=== PATIENT | female | born 1950 | race Caucasian/White ===

== ENCOUNTER 2018-06-30 08:19 | Observation (INO) | payer MEDICARE ==
[2018-06-30] MEDS ORDERED: NS 0.9% 1000 ML* 1,000 ML IV ONE (08:46)
--- NOTE | 2018-06-30 08:48 | ED ---
Syncope/Near Syncope - HPI Summary HPI Summary: Patient is a 67-year-old female who presents emergency department for a syncopal episode that occurred just prior to arrival. Patient states she got out of bed this morning and walked into the kitchen to get her breakfast ready. She states she suddenly got diaphoretic and next thing she knew she woke up on the floor. Episode was witnessed by her who is present. He states that patient became very sweaty and clammy and passed out. There is no seizure activity. He states it took her about one minute to come to. Pt. denies CP or SOB. Pt. notes a hx of hyponatremia. She denies h/a, neck pain, abd. pain, fever. She notes that she was started on cipro and flagyl for suspected diverticulitis last week and is almost done with rx. Pt. states that her abd. pain has resolved and she is feeling much better since antibx. However, she does not diarrhea since starting antibxs. Past medical hx of depression, bipolar , high cholesterol. Pt. notes she had a full cardio workup a few years ago that was negative. Symptoms are moderate in severity. Ambulation and activity makes sxs worse. Rest makes sxs better. Pt.'s only current complaint is generalized weakness. - History Of Current Complaint Chief Complaint: EDSyncope Time Seen by Provider: 06/30/18 08:39 Hx Obtained From: Patient - Allergies/Home Medications Allergies/Adverse Reactions: Allergies Allergy/AdvReac Type Severity Reaction Status Date / Time diazepam Allergy Swelling Verified 06/30/18 12:20 Home Medications: Home Medications Aspirin EC TAB* [Ecotrin EC Low Dose 81 MG*] 81 mg PO DAILY 06/30/18 [History Confirmed 06/30/18] Cholecalciferol (Vitamin D3) [Vitamin D3] 2,000 unit PO DAILY 06/30/18 [History Confirmed 06/30/18] Ciprofloxacin HCl [Cipro] 500 mg PO BID 06/30/18 [History Confirmed 06/30/18] Divalproex ER TAB(*) [Depakote ER TAB(*)] 500 mg PO BEDTIME 06/30/18 [History Confirmed 06/30/18] Famotidine TAB* [Pepcid 20 MG TAB*] 20 mg PO BID 06/30/18 [History Confirmed ] Lysine [l-Lysine] 1,000 mg PO DAILY 06/30/18 [History Confirmed 06/30/18] Multivit-Min/Iron/Folic/Lutein [Centrum Silver Women Tablet] 1 tab PO DAILY [History Confirmed 06/30/18] Pantoprazole Sodium 40 mg PO DAILY 06/30/18 [History Confirmed 06/30/18] Valacyclovir HCl [Valacyclovir] 500 mg PO BID PRN 06/30/18 [History Confirmed ] metroNIDAZOLE * 500 mg PO TID 06/30/18 [History Confirmed 06/30/18] PMH/Surg Hx/FS Hx/Imm Hx Previously Healthy: Yes Endocrine/Hematology History: Denies: Hx Diabetes, Hx Systemic Lupus Erythematosus, Hx Thyroid Disease Cardiovascular History: Reports: Hx Hypercholesterolemia, Hx Hypotension, Other Cardiovascular Problems/Disorders - Hx carotid artery stenosis Denies: Hx Congestive Heart Failure, Hx Hypertension, Hx Pacemaker/ICD Respiratory History: Denies: Hx Asthma, Hx Chronic Obstructive Pulmonary Disease (COPD) GI History: Denies: Hx Ulcer History: Denies: Hx Dialysis, Hx Renal Disease Musculoskeletal History: Denies: Hx Rheumatoid Arthritis Comment Only: Other Musculoskeletal History - back surgery Sensory History: Reports: Hx Contacts or Glasses Denies: Hx Hearing Aid Opthamlomology History: Reports: Hx Contacts or Glasses Neurological History: Reports: Hx Seizures - Consultation states "possible Hx of seizure D/O" Psychiatric History: Reports: Hx Anxiety, Hx Depression, Hx Panic Disorder, Hx Inpatient Treatment - multiple inpatient, Hx Bipolar Disorder, Hx Suicide Attempt - at least 3 suicide attempts within past 2 years Denies: Hx Eating Disorder, Hx of Violent Episodes Against Others - Cancer History Cancer Type, Location and Year: [facility] 20 YRS AGO-removed surgical.no chemo Hx Chemotherapy: No Hx Radiation Therapy: No - Surgical History Surgery Procedure, Year, and Place: hx of back surgery and s/p partial hysterectomy in 1984, two knee surgeries (left),bilat oopherectomy Infectious Disease History: No Infectious Disease History: Reports: Hx Tuberculosis - POSITIVE TEST, CLEAR ON CHEST X-RAY Denies: Hx Clostridium Difficile, Hx Hepatitis, Hx Human Immunodeficiency Virus (HIV), Hx of Known/Suspected MRSA, Hx Shingles, Hx Known/Suspected VRE, Hx Known/Suspected VRSA, History Other Infectious Disease, Traveled Outside the [place] in Last 30 Days - Family History Known Family History: Positive: Unknown Negative: Cardiac Disease, Hypertension, Diabetes - Social History Occupation: Retired Lives: With Family Alcohol Use: None Alcohol Amount: HX EtOH abuse Substance Use Type: Reports: Sedatives Substance Use Comment - Amount & Last Used: 20 0.5mg lorazepam Hx Tobacco Use: No Smoking Status (MU): Never Smoked Tobacco Have You Smoked in the Last Year: No Review of Systems Constitutional: Negative Negative: Fever, Chills Eyes: Negative ENT: Negative Cardiovascular: Negative Negative: Palpitations, Chest Pain Respiratory: Negative Negative: Shortness Of Breath, Cough Positive: Diarrhea. Negative: Abdominal Pain, Vomiting, Nausea Genitourinary: Negative Musculoskeletal: Negative Neurological: Negative All Other Systems Reviewed And Are Negative: Yes Physical Exam Triage Information Reviewed: Yes Vital Signs On Initial Exam: Initial Vitals Temp Pulse Resp BP Pulse Ox 97.3 F 78 20 103/68 99 06/30/18 08:27 06/30/18 08:27 06/30/18 08:27 06/30/18 08:27 06/30/18 08:27 Vital Signs Reviewed: Yes Appearance: Positive: Well-Appearing - Pt. sitting up in bed in NAD. Appears tired and dehydrated. Lips are chapped and mouth is dry. Skin: Positive: Warm, Dry Head/Face: Positive: Normal Head/Face Inspection Eyes: Positive: Normal, EOMI Neck: Positive: Supple, Nontender Respiratory/Lung Sounds: Positive: Clear to Auscultation, Breath Sounds Present Cardiovascular: Positive: Normal, RRR Abdomen Description: Positive: Nontender, Soft Neurological: Positive: Normal, CN Intact II-III Psychiatric: Positive: Affect/Mood Appropriate Diagnostics - Vital Signs Vital Signs Temp Pulse Resp BP Pulse Ox 06/30/18 08:27 97.3 F 78 20 103/68 99 - Laboratory Result Diagrams: 06/30/18 09:07 06/30/18 09:07 Lab Statement: Any lab studies that have been ordered have been reviewed, and results considered in the medical decision making process. Course/Dx Course Of Treatment: Pt. presenting to the emergency department after a syncopal episode. She is afebrile. Blood pressure is mildly low at 103/68. Patient denies any chest pain. Her main complaint is generalized weakness and diarrhea. Patient was started on IV fluids and monitor was placed. We'll check cardiac workup. ECG done at 0847 shows a sinus rhythm of 76 bpm, normal axis, no ST eelvation or depression. CBC unremarkable. Sodium low at 127. Chest xray negative for acute findings. Orthostatics were obtained and pt. dropped from 125/69 to 99/73 when changing from sitting to standing. Pt. became very weak and dizziness with this. Given hyponatremia and orthostatic hypotension, hospitalist was contacted for admission. I spoke with Dr. Jerry who has accepted admission. - Diagnoses Differential Diagnosis/HQI/PQRI: Positive: Coronary Artery Disease, Dysrhythmia , GI Bleed, Hypoglycemia, Hypovolemia, Metabolic Reaction, Myocardial Infarction , Seizure, Vasovagal Episode Provider Diagnoses: Hyponatremia, Orthostatic hypotension Discharge - Sign-Out/Discharge Documenting (check all that apply): Patient Departure - Discharge Plan Condition: Stable Disposition: ADMITTED TO [facility] - Billing Disposition and Condition Condition: STABLE Disposition: Admitted to [facility]
--- OUTSIDE RECORDS SUMMARY | 2018-06-30 08:54 | XMS REPORT ---
:1950 External Reference #:[id number] Author Organization [facility] Address [address] [place] [address] Phone [phone] Care Team Providers Name Role Phone Huber Riley MD Primary Care Physician Unavailable Payers Type Date Identification Numbers Payment Provider Subscriber Medicare Primary Policy Number: [id number] Medicare Corinna Vela PayID: [id number] [address] [facility] [address] Medigap Part B Effective: 2013 Policy Number: Medicare Corinna Vela [id number] Expires: 2018 PayID: [id number] [address] [place] [address] Medigap Part B Policy Number: [id number] [facility] Corinna Vela PayID: [id number] [address] [place] [address] Advance Directives Type Date Description Status Comment Other Directive 12/09/2004 Health Care Proxy Current and Verified Problems Date Description Provider Status Onset: 08/25/2014 Single major depressive episode Huber Riley M.D. Active Onset: 08/25/2014 Hyperlipidemia Huber Riley M.D. Active Onset: 08/25/2014 Cardiovascular symptoms Huber Riley M.D. Active Onset: 08/25/2014 Cellulitis Huber Riley M.D. Active Onset: 08/25/2014 Herpes simplex Huber Riley M.D. Active Onset: 08/25/2014 After-cataract Huber Riley M.D. Active Onset: 09/08/2014 Hypo-osmolality and or hyponatremia Huber Riley M.D. Active Onset: 11/08/2014 Closed fracture of nasal bones Huber Riley M.D. Active Onset: 01/02/2016 Mucocele of salivary gland Huber Riley M.D. Active Onset: 04/14/2016 Essential hypertension Huber Riley M.D. Active Onset: 10/01/2016 Mixed hyperlipidemia Huber Riley M.D. Active Onset: 03/04/2017 Other gastritis with bleeding Huber Riley M.D. Active Onset: 04/01/2017 Abdominal pain Huber Riley M.D. Active Onset: 05/11/2017 Knee pain Huber Riley M.D. Active Onset: 05/20/2017 Anemia Huber Riley M.D. Active Onset: 05/14/2017 Localized, primary osteoarthritis Chelly Mason MD Active Onset: 05/14/2017 Acquired genu valgum Chelly Mason MD Active Onset: 07/01/2017 Gastroesophageal reflux disease Huber Riley M.D. Active Family History Date Family Member(s) Problem(s) Comments General Diabetes General Heart Disease General Hypertension General Cancer General Stroke Father Diabetes Type II Father stents at age 86, at 88 years of age not related to cardiac Mother dec in mid 30's due to suicide Siblings 1 Siblings Prostate cancer Siblings 3 sisters, all healthy Social History Type Date Description Comments Marital Status Lives With Occupation Retired ETOH Use Rarely consumes alcohol Smoking Patient has never smoked Recreational Drug Use Denies Drug Use Daily Caffeine Consumes on average 2 cups of regular coffee per day Exercise Type/Frequency Exercises sporadically Allergies, Adverse Reactions, Alerts Date Description Reaction Status Severity Comments 08/25/2014 Valium Swelling active Medications Medication Date Status Form Strength Qnty SIG Indications Ordering Provider Cipro 10/25/ Active Tablets 500mg 14tab 1 tab K57.32 2017 s twice a Benavides, day for 7 MD days Metronidazole 1025/ Active Tablets 500mg 21tab 1 three K57.32 2017 s times a Benavides, day x 7 MD days Famotidine 03/06/ Active Tablets 20mg 60tab 1 by Huber 2016 s mouth Osvaldo colon , SethDYun daily Pantoprazole 03/04/ Active Tablets DR 40mg 90tab 1 in the K29.61 Huber Sodium 2017 s morning [place] empty , M.D. stomach Betamethasone 03/04/ Active Cream 0.1% 45gm apply to L23.9 Huber Valerate 2016 affected [place] area , M.D. twice Prozac 01/01/ Active Capsules 20mg 1 by Huber 2015 mouth [place] every day , M.D. Docusate Sodium / Active Capsules 100mg 60cap 1 by Unknown 0000 s mouth twice a day prn Senna Laxative / Active Tablets 8.6mg 30tab 1 by Unknown 0000 s mouth every day prn Baby Aspirin / Active Chewtabs 81mg 100un 1 by Unknown 0000 its mouth every day Centrum Silver / Active Tablets Adult 50 90tab 1 by Unknown Adult 50+ 0000 s mouth every day Vitamin D / Active Tablets 1000Unit 2 tab Unknown (Cholecalciferol 0000 each day ) by mouth Lysine HCL / Active Tablets 1000mg 1 po qd Unknown 0000 Divalproex / Active Tablets ER 500mg 2 tabs by Unknown Sodium ER 0000 24HR mouth at bedtime as directed Simvastatin / Active Tablets 20mg 90tab 1 by Bo 0000 s mouth Lawanda Belcher, every day M.D.,FACP at at bedtime Nitrofurantoin 12/03/ Hx Capsules 100mg 14cap 1 cap bid R35.0 [place] Macrocrystal 2016 - s [place] 12/24/ , M.DYun 2017 Valacyclovir HCL 03/04/ Hx Tablets 500mg 6tabs 1 tab in B00.9 Bo 2016 - in the Lawanda Belcher, 06/25/ morning M.D.,FACP 2015 and 1 in at night as needed Ketoconazole 03/04/ Hx Cream 2% 90gm apply B36.9 Huber 2016 - twice a [place] 02/09/ day , M.D. 2018 Betamethasone 01/01/ Hx Cream 0.1% 45gm apply to Huber Valerate 2016 - affected [place] 03/04/ area , M.D. 2016 twice Nystatin 11/20/ Hx Suspension [id number] 250ml 5ml swish B37.0 [place] 2016 - t/ML and [place] 03/04/ swallow 5 , M.D. 2016 times daily Metoprolol 11/07/ Hx Tablets 25mg 60tab 1/2 tab Huber Tartrate 2015 - s by mouth [place] 12/03/ once a , M.D. 2015 day Depakote ER 10/28/ Hx Tablets ER 250mg 90tab 3 tab by Other 2016 - 24HR s mouth Ordering 03/04/ every Provider 2016 night at bedtime Risperidone 10/28/ Hx Tablets 0.5mg 30tab take one Other 2016 - s half Ordering 04/14/ tablet by Provider 2016 mouth at bedtime Keflex 08/25/ Hx Capsules 500mg 21cap 1 by 682.8 Huber 2013 - mouth [place] 09/08/ three , M.D. 2015 times a day Valtrex 08/25/ Hx Tablets 1gm 10tab twice a 054.79 Huber 2013 - day [place] 09/08/ , M.D. 2014 Divalproex / Hx Tablets ER 500mg 60tab 2 tabs q Unknown Sodium ER 0000 - 24HR s hs 2015 Risperdal / Hx Tablets 120ta 0.5mg by Unknown 0000 - bs mouth 07/18/ every day 2014 at hs Risperdal / Hx Tablets 0.5mg take 1-2 Unknown 0000 - tablet by 09/04/ mouth 2015 twice a day as needed for severe symptoms Valacyclovir HCL / Hx Tablets 500mg 20tab 1 tablets [place] 0000 - s by mouth [place] 03/04/ twice a , M.D. 2016 day for 10 days Risperidone / Hx Tablets 0.25mg 1 tab in Unknown 0000 - evening 2017 Medications Administered in Office Medication Date Status Form Strength Qnty SIG Indications Ordering Provider No Injection 02/26/ Administered Injection Zaneb 2017 MD Marlon Triamcinolone 02/26/ Administered Injection Zaneb (Kenalog) 2017 MD Marlon Triamcinolone 05/14/ Administered Injection Zaneb (Kenalog) 2016 MD Marlon Immunizations CPT Code Status Date Vaccine Lot # [id number] Given 02/10/2018 Pneumonia Vaccine [id number] Given 10/09/2014 Pneumococcal Conjugate Vaccine 13 Valent For [id number] Intramuscular Use Vital Signs Date Vital Result Comment 06/24/2018 Height 63 inches 5'3" Weight 143.38 lb Heart Rate 76 /min BP Systolic 130 mmHg BP Diastolic 90 mmHg Body Temperature 98.0 F O2 % BldC Oximetry 96 % BMI (Body Mass Index) 25.4 kg/m2 05/12/2018 Height 63 inches 5'3" Weight 143.00 lb Heart Rate 83 /min BP Systolic 111 mmHg BP Diastolic 70 mmHg O2 % BldC Oximetry 99 % BMI (Body Mass Index) 25.3 kg/m2 02/26/2018 Height 63 inches 5'3" Weight 148.00 lb BP Systolic 111 mmHg BP Diastolic 68 mmHg Respiratory Rate 16 /min Pain Level 7 BMI (Body Mass Index) 26.2 kg/m2 02/10/2018 Height 63 inches 5'3" Weight 148.00 lb Heart Rate 77 /min BP Systolic Sitting 110 mmHg BP Diastolic Sitting 72 mmHg O2 % BldC Oximetry 99 % BMI (Body Mass Index) 26.2 kg/m2 11/05/2017 Height 63 inches 5'3" Weight 150.50 lb Heart Rate 67 /min BP Systolic 120 mmHg BP Diastolic 72 mmHg Body Temperature 97.1 F O2 % BldC Oximetry 98 % BMI (Body Mass Index) 26.7 kg/m2 07/01/2017 Height 63 inches 5'3" Weight 147.75 lb Heart Rate 67 /min BP Systolic 100 mmHg BP Diastolic 60 mmHg Body Temperature 97.1 F O2 % BldC Oximetry 99 % BMI (Body Mass Index) 26.2 kg/m2 05/20/2017 Height 63 inches 5'3" Weight 145.75 lb Heart Rate 74 /min BP Systolic 122 mmHg BP Diastolic 70 mmHg Body Temperature 99.1 F O2 % BldC Oximetry 98 % BMI (Body Mass Index) 25.8 kg/m2 05/14/2017 Height 63 inches 5'3" Weight 146.00 lb Heart Rate 83 /min BP Systolic 112 mmHg BP Diastolic 77 mmHg Body Temperature 97.6 F BMI (Body Mass Index) 25.9 kg/m2 05/11/2017 Weight 146.00 lb Heart Rate 71 /min BP Systolic Sitting 124 mmHg BP Diastolic Sitting 62 mmHg Body Temperature 98.0 F O2 % BldC Oximetry 98 % 04/01/2017 Weight 147.25 lb Heart Rate 80 /min BP Systolic 110 mmHg BP Diastolic 70 mmHg Body Temperature 97.0 F O2 % BldC Oximetry 98 % 03/25/2017 Weight 146.50 lb Heart Rate 73 /min BP Systolic 100 mmHg BP Diastolic 60 mmHg Body Temperature 96.9 F O2 % BldC Oximetry 98 % 03/04/2017 Weight 143.50 lb Heart Rate 82 /min BP Systolic 104 mmHg BP Diastolic 68 mmHg Body Temperature 97.6 F O2 % BldC Oximetry 98 % 12/24/2016 Weight 145.00 lb Heart Rate 84 /min BP Systolic Sitting 122 mmHg BP Diastolic Sitting 64 mmHg O2 % BldC Oximetry 98 % 12/03/2016 Weight 147.00 lb Heart Rate 77 /min BP Systolic Sitting 120 mmHg BP Diastolic Sitting 88 mmHg Body Temperature 97.7 F O2 % BldC Oximetry 99 % 10/01/2016 Weight 147.00 lb w/ boots Heart Rate 66 /min BP Systolic Sitting 100 mmHg BP Diastolic Sitting 62 mmHg Body Temperature 98.2 F O2 % BldC Oximetry 99 % 06/25/2016 Weight 143.00 lb Heart Rate 68 /min BP Systolic Sitting 120 mmHg BP Diastolic Sitting 64 mmHg Respiratory Rate 15 /min Body Temperature 97.8 F O2 % BldC Oximetry 99 % 04/15/2016 Height 62.75 inches 5'2.75" Weight 141.00 lb w/shoes Heart Rate 76 /min BP Systolic Sitting 102 mmHg LA reg cuff BP Diastolic Sitting 64 mmHg LA reg cuff BMI (Body Mass Index) 25.2 kg/m2 Ejection Fraction 55% Stress Test 08/07/15 04/14/2016 Height 62.75 inches 5'2.75" Weight 138.25 lb Heart Rate 82 /min BP Systolic Sitting 106 mmHg BP Diastolic Sitting 82 mmHg Body Temperature 97.6 F O2 % BldC Oximetry 99 % BMI (Body Mass Index) 24.7 kg/m2 03/11/2016 Height 63 inches 5'3" Weight 141.12 lb Heart Rate 84 /min BP Systolic Sitting 116 mmHg BP Diastolic Sitting 74 mmHg Body Temperature 97.6 F O2 % BldC Oximetry 99 % BMI (Body Mass Index) 25.0 kg/m2 03/04/2016 Height 63 inches 5'3" Weight 141.00 lb Heart Rate 78 /min BP Systolic Sitting 114 mmHg BP Diastolic Sitting 78 mmHg Body Temperature 98.0 F O2 % BldC Oximetry 97 % BMI (Body Mass Index) 25.0 kg/m2 01/02/2016 Weight 142.00 lb Heart Rate 74 /min BP Systolic Sitting 94 mmHg BP Diastolic Sitting 50 mmHg Body Temperature 97.9 F 11/21/2015 Weight 135.00 lb Heart Rate 66 /min BP Systolic Sitting 110 mmHg BP Diastolic Sitting 60 mmHg Respiratory Rate 15 /min O2 % BldC Oximetry 98 % 09/26/2015 Weight 139.00 lb Heart Rate 80 /min BP Systolic Sitting 112 mmHg BP Diastolic Sitting 73 mmHg Body Temperature 97.6 F O2 % BldC Oximetry 99 % 09/05/2015 Height 63 inches 5'3" Weight 142.00 lb w/boots Heart Rate 84 /min BP Systolic Sitting 96 mmHg LA reg cuff BP Diastolic Sitting 68 mmHg LA reg cuff BMI (Body Mass Index) 25.2 kg/m2 Ejection Fraction 55-60 echo 07/31/15 07/18/2015 Height 63 inches 5'3" Weight 138.50 lb w/shoes BMI (Body Mass Index) 24.5 kg/m2 Ejection Fraction 55-60 echo 10/12/14 07/10/2015 Height 63 inches 5'3" Weight 140.38 lb Heart Rate 92 /min BP Systolic Sitting 120 mmHg BP Diastolic Sitting 85 mmHg Body Temperature 97.0 F O2 % BldC Oximetry 98 % BMI (Body Mass Index) 24.9 kg/m2 06/22/2015 Height 63 inches 5'3" Weight 142.00 lb Heart Rate 81 /min BP Systolic 100 mmHg BP Diastolic 60 mmHg Body Temperature 97.8 F O2 % BldC Oximetry 98 % BMI (Body Mass Index) 25.2 kg/m2 03/09/2015 Weight 139.00 lb Heart Rate 76 /min BP Systolic Sitting 108 mmHg BP Diastolic Sitting 78 mmHg Body Temperature 97.7 F O2 % BldC Oximetry 96 % 11/08/2014 Height 63 inches 5'3" Weight 152.38 lb Heart Rate 89 /min BP Systolic Sitting 118 mmHg BP Diastolic Sitting 68 mmHg Body Temperature 98.3 F O2 % BldC Oximetry 98 % BMI (Body Mass Index) 27.0 kg/m2 10/11/2014 Height 63 inches 5'3" Weight 156.50 lb Heart Rate 80 /min BP Systolic Sitting 100 mmHg LA, reg BP Diastolic Sitting 72 mmHg LA, reg BMI (Body Mass Index) 27.7 kg/m2 10/09/2014 Height 63 inches 5'3" Weight 156.50 lb Heart Rate 75 /min BP Systolic Sitting 104 mmHg BP Diastolic Sitting 76 mmHg O2 % BldC Oximetry 98 % BMI (Body Mass Index) 27.7 kg/m2 09/08/2014 Height 63 inches 5'3" Weight 152.00 lb Heart Rate 82 /min BP Systolic Sitting 113 mmHg BP Diastolic Sitting 73 mmHg Body Temperature 97.2 F BMI (Body Mass Index) 26.9 kg/m2 08/25/2014 Height 63 inches 5'3" Weight 143.25 lb Heart Rate 82 /min BP Systolic Sitting 128 mmHg BP Diastolic Sitting 70 mmHg Body Temperature 97.0 F O2 % BldC Oximetry 98 % BMI (Body Mass Index) 25.4 kg/m2 Results Test Date Test Result H/L Range Note CBC Auto Diff 02/25/2018 White Blood Count 8.2 10^3/uL 3.5-10.8 Red Blood Count 3.86 10^6/uL Low 4.00-5.40 Hemoglobin 11.8 g/dL Low 12.0-16.0 Hematocrit 35 % 35-47 Mean Corpuscular Volume 91 fL 80-97 Mean Corpuscular Hemoglobin 31 pg 27-31 Mean Corpuscular HGB Conc 34 g/dL 31-36 Red Cell Distribution Width 14 % 10.5-15 Platelet Count 269 10^3/uL 150-450 Mean Platelet Volume 7.5 um3 7.4-10.4 Abs Neutrophils 5.4 10^3/uL 1.5-7.7 Abs Lymphocytes 1.6 10^3/uL 1.0-4.8 Abs Monocytes 1.0 10^3/uL High 0-0.8 Abs Eosinophils 0.1 10^3/uL 0-0.6 Abs Basophils 0 10^3/uL 0-0.2 Abs Nucleated RBC 0 10^3/uL Granulocyte % 66.1 % 38-83 Lymphocyte % 20.0 % Low 25-47 Monocyte % 12.1 % High 0-7 Eosinophil % 1.4 % 0-6 Basophil % 0.4 % 0-2 Nucleated Red Blood Cells % 0 Iron & Iron Binding Capacity 02/25/2018 Iron 57 g/dL 50-212 Unsaturated Iron Binding 269 g/dL Total Iron Binding Capacity 326 g/dL 250-450 Transferrin 233 mg/dL 203-362 % Iron Saturation 17 % 15-55 Lipid Profile (Trig/Chol/HDL) 07/03/2017 Triglycerides 104 mg/dL 1 Cholesterol 152 mg/dL 2 HDL Cholesterol 47.4 mg/dL 3 LDL Cholesterol 84 mg/dL 4 Basic Metabolic Panel 07/03/2017 Sodium 130 mmol/L Low 133-145 Potassium 4.4 mmol/L 3.5-5.0 Chloride 97 mmol/L Low 101-111 Co2 Carbon Dioxide 27 mmol/L 22-32 Anion Gap 6 mmol/L 2-11 Glucose 82 mg/dL 70-100 Blood Urea Nitrogen 13 mg/dL 6-24 Creatinine 0.54 mg/dL 0.51-0.95 BUN/Creatinine Ratio 24.1 High 8-20 Calcium 9.3 mg/dL 8.6-10.3 Egfr Non- 112.3 >60 Egfr 144.4 >60 5 Basic Metabolic Panel 06/03/2017 Sodium 127 mmol/L Low 133-145 Potassium 4.6 mmol/L 3.5-5.0 Chloride 95 mmol/L Low 101-111 Co2 Carbon Dioxide 26 mmol/L 22-32 Anion Gap 6 mmol/L 2-11 Glucose 87 mg/dL 70-100 Blood Urea Nitrogen 8 mg/dL 6-24 Creatinine 0.45 mg/dL Low 0.51-0.95 BUN/Creatinine Ratio 17.8 8-20 Calcium 8.8 mg/dL 8.6-10.3 Egfr Non- 138.6 >60 Egfr 178.2 >60 6 Laboratory test 06/02/2017 Clotest SEE RESULT BELOW 7, 8 finding Laboratory test 06/02/2017 Surgical Pathology SEE RESULT BELOW 9, 10 finding Vitamin B12 And 05/15/2017 Vitamin B12 985 pg/mL High 180-914 11 Folate Serum Folic Acid (Folate) > 20.00 ng/mL >3.99 Iron & Iron Binding Capacity 05/15/2017 Iron 63 g/dL 50-212 Unsaturated Iron Binding 302 g/dL Total Iron Binding Capacity 365 g/dL 250-450 % Iron Saturation 17 % 15-55 Stool Occult Blood 05/15/2017 Stool Occult Blood, SEE RESULT BELOW 12 Diag Diag CBC Auto Diff 05/12/2017 White Blood Count 5.9 10^3/uL 3.5-10.8 Red Blood Count 3.63 10^6/uL Low 4.0-5.4 Hemoglobin 11.5 g/dL Low 12.0-16.0 Hematocrit 34 % Low 35-47 Mean Corpuscular Volume 92 fL 80-97 Mean Corpuscular Hemoglobin 32 pg High 27-31 Mean Corpuscular HGB Conc 34 g/dL 31-36 Red Cell Distribution Width 14 % 10.5-15 Platelet Count 235 10^3/uL 150-450 Mean Platelet Volume 7 um3 Low 7.4-10.4 Abs Neutrophils 3.5 10^3/uL 1.5-7.7 Abs Lymphocytes 1.6 10^3/uL 1.0-4.8 Abs Monocytes 0.7 10^3/uL 0-0.8 Abs Eosinophils 0.1 10^3/uL 0-0.6 Abs Basophils 0 10^3/uL 0-0.2 Abs Nucleated RBC 0 10^3/uL Granulocyte % 58.4 % 38-83 Lymphocyte % 27.8 % 25-47 Monocyte % 11.7 % High 1-9 Eosinophil % 1.4 % 0-6 Basophil % 0.7 % 0-2 Nucleated Red Blood Cells % 0 Laboratory test finding 05/12/2017 Erythrocyte Sed Rate 11 mm/Hr 0-40 Lyme Disease Serology Negative Negative 13 Uric Acid 2.6 mg/dL 2.3-6.6 Comp Metabolic Panel 05/12/2017 Sodium 124 mmol/L Low 133-145 Potassium 4.6 mmol/L 3.5-5.0 Chloride 92 mmol/L Low 101-111 Co2 Carbon Dioxide 28 mmol/L 22-32 Anion Gap 4 mmol/L 2-11 Glucose 83 mg/dL 70-100 Blood Urea Nitrogen 8 mg/dL 6-24 Creatinine 0.44 mg/dL Low 0.51-0.95 BUN/Creatinine Ratio 18.2 8-20 Calcium 9.0 mg/dL 8.6-10.3 Total Protein 6.1 g/dL Low 6.4-8.9 Albumin 3.9 g/dL 3.2-5.2 Globulin 2.2 g/dL 2-4 Albumin/Globulin Ratio 1.8 1-3 Total Bilirubin 0.30 mg/dL 0.2-1.0 Alkaline Phosphatase 58 U/L 34-104 Alt 10 U/L 7-52 Ast 14 U/L 13-39 Egfr Non- 142.2 >60 Egfr 182.9 >60 14 Comp Metabolic Panel 03/25/2017 Sodium 127 mmol/L Low 133-145 Potassium 4.6 mmol/L 3.5-5.0 Chloride 93 mmol/L Low 101-111 Co2 Carbon Dioxide 27 mmol/L 22-32 Anion Gap 7 mmol/L 2-11 Glucose 94 mg/dL 70-100 Blood Urea Nitrogen 14 mg/dL 6-24 Creatinine 0.55 mg/dL 0.51-0.95 BUN/Creatinine Ratio 25.5 High 8-20 Calcium 9.0 mg/dL 8.6-10.3 Total Protein 6.1 g/dL Low 6.4-8.9 Albumin 3.9 g/dL 3.2-5.2 Globulin 2.2 g/dL 2-4 Albumin/Globulin Ratio 1.8 1-3 Total Bilirubin 0.20 mg/dL 0.2-1.0 Alkaline Phosphatase 49 U/L 34-104 Alt 8 U/L 7-52 Ast 14 U/L 13-39 Egfr Non- 109.9 >60 Egfr 141.4 >60 15 Urinalysis Profile 03/04/2017 Urine Color Yellow Urine Appearance Cloudy Urine Specific [place] 1.011 1.010-1.030 Urine pH 7.0 5-9 Urine Urobilinogen Negative Negative Urine Ketones Negative Negative Urine Protein Negative Negative Urine Leukocytes Negative Negative Urine Blood Negative Negative Urine Nitrite Negative Negative Urine Bilirubin Negative Negative Urine Glucose Negative Negative CBC Auto Diff 03/04/2017 White Blood Count 6.0 10^3/uL 3.5-10.8 Red Blood Count 3.77 10^6/uL Low 4.0-5.4 Hemoglobin 12.2 g/dL 12.0-16.0 Hematocrit 36 % 35-47 Mean Corpuscular Volume 96 fL 80-97 Mean Corpuscular Hemoglobin 32 pg High 27-31 Mean Corpuscular HGB Conc 34 g/dL 31-36 Red Cell Distribution Width 14 % 10.5-15 Platelet Count 218 10^3/uL 150-450 Mean Platelet Volume 8 um3 7.4-10.4 Abs Neutrophils 3.4 10^3/uL 1.5-7.7 Abs Lymphocytes 1.8 10^3/uL 1.0-4.8 Abs Monocytes 0.7 10^3/uL 0-0.8 Abs Eosinophils 0.1 10^3/uL 0-0.6 Abs Basophils 0.1 10^3/uL 0-0.2 Abs Nucleated RBC 0 10^3/uL Granulocyte % 57.1 % 38-83 Lymphocyte % 29.4 % 25-47 Monocyte % 11.7 % High 1-9 Eosinophil % 0.9 % 0-6 Basophil % 0.9 % 0-2 Nucleated Red Blood Cells % 0 Comp Metabolic Panel 12/24/2016 Sodium 125 mmol/L Low 133-145 Potassium 4.4 mmol/L 3.5-5.0 Chloride 91 mmol/L Low 101-111 Co2 Carbon Dioxide 28 mmol/L 22-32 Anion Gap 6 mmol/L 2-11 Glucose 89 mg/dL 70-100 Blood Urea Nitrogen 11 mg/dL 6-24 Creatinine 0.54 mg/dL 0.51-0.95 BUN/Creatinine Ratio 20.4 High 8-20 Calcium 9.3 mg/dL 8.6-10.3 Total Protein 6.5 g/dL 6.4-8.9 Albumin 4.1 g/dL 3.2-5.2 Globulin 2.4 g/dL 2-4 Albumin/Globulin Ratio 1.7 1-3 Total Bilirubin 0.40 mg/dL 0.2-1.0 Alkaline Phosphatase 53 U/L 34-104 Alt 9 U/L 7-52 Ast 16 U/L 13-39 Egfr Non- 112.3 >60 Egfr 144.4 >60 16 Urine Culture And 12/03/2016 Urine Culture SEE RESULT BELOW 17 Sensitivities Ua Routine 12/03/2016 Ua Specific [place] 1.000 Ua PH 8 Ua Color yellow Ua Appera clear Ua WBC trace Ua Protein neg Ua Glucose neg Ua Ketones neg Ua Bilirubin neg Ua Urobilinogen normal Ua Nitrite neg Ua Occult Blood moderate Lipid Profile (Trig/Chol/HDL) 09/25/2016 Triglycerides 140 mg/dL 18 Cholesterol 131 mg/dL 19 HDL Cholesterol 41.8 mg/dL 20 LDL Cholesterol 61 mg/dL 21 Basic Metabolic Panel 09/25/2016 Sodium 133 mmol/L 133-145 Potassium 4.3 mmol/L 3.5-5.0 Chloride 98 mmol/L Low 101-111 Co2 Carbon Dioxide 28 mmol/L 22-32 Anion Gap 7 mmol/L 2-11 Glucose 79 mg/dL 70-100 Blood Urea Nitrogen 14 mg/dL 6-24 Creatinine 0.51 mg/dL 0.51-0.95 BUN/Creatinine Ratio 27.5 High 8-20 Calcium 9.0 mg/dL 8.6-10.3 Egfr Non- 119.9 >60 Egfr 154.2 >60 22 Basic Metabolic Panel 06/16/2016 Sodium 134 mmol/L 133-145 Potassium 4.7 mmol/L 3.5-5.0 Chloride 98 mmol/L Low 101-111 Co2 Carbon Dioxide 30 mmol/L 22-32 Anion Gap 6 mmol/L 2-11 Glucose 83 mg/dL 70-100 Blood Urea Nitrogen 10 mg/dL 6-24 Creatinine 0.45 mg/dL Low 0.51-0.95 BUN/Creatinine Ratio 22.2 High 8-20 Calcium 9.2 mg/dL 8.6-10.3 Egfr Non- 139.0 >60 Egfr 178.7 >60 23 Laboratory test finding 03/03/2016 Erythrocyte Sed Rate 17 mm/Hr 0-40 24 , 25 Lyme Disease Serology Negative Negative 24, 26 CBC Auto Diff 03/03/2016 White Blood Count 6.7 10^3/uL 3.5-10.8 24 Red Blood Count 4.04 10^6/uL 4.0-5.4 24 Hemoglobin 12.4 g/dL 12.0-16.0 24 Hematocrit 37 % 35-47 24 Mean Corpuscular Volume 91 fL 80-97 24 Mean Corpuscular Hemoglobin 31 pg 27-31 24 Mean Corpuscular HGB Conc 34 g/dL 31-36 24 Red Cell Distribution Width 14 % 10.5-15 24 Platelet Count 215 10^3/uL 150-450 24 Mean Platelet Volume 8 um3 7.4-10.4 24 Abs Neutrophils 4.4 10^3/uL 1.5-7.7 24 Abs Lymphocytes 1.4 10^3/uL 1.0-4.8 24 Abs Monocytes 0.8 10^3/uL 0-0.8 24 Abs Eosinophils 0.1 10^3/uL 0-0.6 24 Abs Basophils 0 10^3/uL 0-0.2 24 Abs Nucleated RBC 0 10^3/uL 24 Granulocyte % 64.8 % 38-83 24 Lymphocyte % 21.3 % Low 25-47 24 Monocyte % 12.4 % High 1-9 24 Eosinophil % 0.9 % 0-6 24 Basophil % 0.6 % 0-2 24 Nucleated Red Blood Cells % 0.1 24 Laboratory test finding 03/03/2016 CRP High Sensitivity 2.45 mg/L 24, 27 Comp Metabolic Panel 03/03/2016 Sodium 129 mmol/L Low 133-145 24 Potassium 4.3 mmol/L 3.5-5.0 24 Chloride 94 mmol/L Low 101-111 24 Co2 Carbon Dioxide 27 mmol/L 22-32 24 Anion Gap 8 mmol/L 2-11 24 Glucose 98 mg/dL 70-100 24 Blood Urea Nitrogen 12 mg/dL 6-24 24 Creatinine 0.44 mg/dL Low 0.51-0.95 24 BUN/Creatinine Ratio 27.3 High 8-20 24 Calcium 9.3 mg/dL 8.6-10.3 24 Total Protein 6.4 g/dL 6.4-8.9 24 Albumin 4.0 g/dL 3.2-5.2 24 Globulin 2.4 g/dL 2-4 24 Albumin/Globulin Ratio 1.7 1-3 24 Total Bilirubin 0.30 mg/dL 0.2-1.0 24 Alkaline Phosphatase 51 U/L 34-104 24 Alt 11 U/L 7-52 24 Ast 15 U/L 13-39 24 Egfr Non- 142.6 >60 24 Egfr 183.4 >60 24, 28 Basic Metabolic Panel 12/06/2015 Sodium 132 mmol/L Low 133-145 Potassium 4.4 mmol/L 3.5-5.0 Chloride 98 mmol/L Low 101-111 Co2 Carbon Dioxide 27 mmol/L 22-32 Anion Gap 7 mmol/L 2-11 Glucose 84 mg/dL 70-100 Blood Urea Nitrogen 11 mg/dL 6-24 Creatinine 0.42 mg/dL Low 0.51-0.95 BUN/Creatinine Ratio 26.2 High 8-20 Calcium 9.3 mg/dL 8.6-10.3 Egfr Non- 150.5 >60 Egfr 193.5 >60 29 Comp Metabolic Panel 11/27/2015 Sodium 128 mmol/L Low 133-145 Potassium 4.4 mmol/L 3.5-5.0 Chloride 94 mmol/L Low 101-111 Co2 Carbon Dioxide 30 mmol/L 22-32 Anion Gap 4 mmol/L 2-11 Glucose 79 mg/dL 70-100 Blood Urea Nitrogen 12 mg/dL 6-24 Creatinine 0.47 mg/dL Low 0.51-0.95 BUN/Creatinine Ratio 25.5 High 8-20 Calcium 9.0 mg/dL 8.6-10.3 Total Protein 6.0 g/dL Low 6.4-8.9 Albumin 3.8 g/dL 3.2-5.2 Globulin 2.2 g/dL 2-4 Albumin/Globulin Ratio 1.7 1-3 Total Bilirubin 0.20 mg/dL 0.2-1.0 Alkaline Phosphatase 51 U/L 34-104 Alt 10 U/L 7-52 Ast 12 U/L Low 13-39 Egfr Non- 132.2 >60 Egfr 170.0 >60 30 Basic Metabolic Panel 10/30/2015 Sodium 132 mmol/L Low 133-145 Potassium 4.2 mmol/L 3.5-5.0 Chloride 95 mmol/L Low 101-111 Co2 Carbon Dioxide 27 mmol/L 22-32 Anion Gap 10 mmol/L 2-11 Glucose 87 mg/dL 70-100 Blood Urea Nitrogen 10 mg/dL 6-24 Creatinine 0.50 mg/dL Low 0.51-0.95 BUN/Creatinine Ratio 20.0 8-20 Calcium 9.8 mg/dL 8.6-10.3 Egfr Non- 123.1 >60 Egfr 158.3 >60 31 CBC Auto Diff 10/26/2015 White Blood Count 7.9 10^3/uL 3.5-10.8 Red Blood Count 3.98 10^6/uL Low 4.0-5.4 Hemoglobin 12.7 g/dL 12.0-16.0 Hematocrit 38 % 35-47 Mean Corpuscular Volume 95 fL 80-97 Mean Corpuscular Hemoglobin 32 pg High 27-31 Mean Corpuscular HGB Conc 34 g/dL 31-36 Red Cell Distribution Width 14 % 10.5-15 Platelet Count 214 10^3/uL 150-450 Mean Platelet Volume 8 um3 7.4-10.4 Abs Neutrophils 5.0 10^3/uL 1.5-7.7 Abs Lymphocytes 1.9 10^3/uL 1.0-4.8 Abs Monocytes 0.8 10^3/uL 0-0.8 Abs Eosinophils 0 10^3/uL 0-0.6 Abs Basophils 0.1 10^3/uL 0-0.2 Abs Nucleated RBC 0.01 10^3/uL Granulocyte % 63.8 % 38-83 Lymphocyte % 24.7 % Low 25-47 Monocyte % 10.6 % High 1-9 Eosinophil % 0.2 % 0-6 Basophil % 0.7 % 0-2 Nucleated Red Blood Cells % 0.1 Laboratory test finding 10/26/2015 Lactic Acid 2.5 mmol/L High 0.5-2.0 32 Comp Metabolic Panel 10/26/2015 Sodium 127 mmol/L Low 133-145 Potassium 4.2 mmol/L 3.5-5.0 Chloride 98 mmol/L Low 101-111 Co2 Carbon Dioxide 22 mmol/L 22-32 Anion Gap 7 mmol/L 2-11 Glucose 84 mg/dL 70-100 Blood Urea Nitrogen 8 mg/dL 6-24 Creatinine 0.46 mg/dL Low 0.51-0.95 BUN/Creatinine Ratio 17.4 8-20 Calcium 8.2 mg/dL Low 8.6-10.3 Total Protein 5.7 g/dL Low 6.4-8.9 Albumin 3.4 g/dL 3.2-5.2 Globulin 2.3 g/dL 2-4 Albumin/Globulin Ratio 1.5 1-3 Total Bilirubin 0.20 mg/dL 0.2-1.0 Alkaline Phosphatase 47 U/L 34-104 Alt 9 U/L 7-52 Ast 13 U/L 13-39 Egfr Non- 135.5 >60 Egfr 174.3 >60 33 Laboratory test finding 10/26/2015 Acetaminophen < 15 g/mL 34 Alcohol 125 mg/dL High <10 Salicylate < 2.50 mg/dL <30 Valproic Acid (Depakene) 55.0 g/mL 50-100 Urinalysis Profile 10/26/2015 Urine Color Yellow Urine Appearance Cloudy Urine Specific [place] 1.006 Low 1.010-1.030 Urine pH 7.0 5-9 Urine Urobilinogen Negative Negative Urine Ketones Trace Negative Urine Protein Negative Negative Urine Leukocytes 2+ Negative Urine Blood 1+ Negative Urine Nitrite Negative Negative Urine Bilirubin Negative Negative Urine Glucose Negative Negative Urine White Blood Cell 2+(11-20/hpf) Absent Urine Red Blood Cell 2+(6-10/hpf) Absent Urine Bacteria 1+ Absent Urine Squamous Epithelial Cell Present Absent Urine Transitional Epithelial Present Absent Laboratory test 10/26/2015 Urine Culture And SEE RESULT BELOW 35 finding Sensitivities Laboratory test 10/26/2015 Point of Care Glucose 82 mg/dL 74-106 36 finding Basic Metabolic Panel 09/26/2015 Sodium 134 mmol/L 133-145 Potassium 4.4 mmol/L 3.5-5.0 Chloride 98 mmol/L Low 101-111 Co2 Carbon Dioxide 30 mmol/L 22-32 Anion Gap 6 mmol/L 2-11 Glucose 81 mg/dL 70-100 Blood Urea Nitrogen 14 mg/dL 6-24 Creatinine 0.54 mg/dL 0.51-0.95 BUN/Creatinine Ratio 25.9 High 8-20 Calcium 9.3 mg/dL 8.6-10.3 Egfr Non- 112.6 >60 Egfr 144.8 >60 37 Basic Metabolic Panel 07/31/2015 Sodium 132 mmol/L Low 133-145 Potassium 4.3 mmol/L 3.5-5.0 Chloride 97 mmol/L Low 101-111 Co2 Carbon Dioxide 27 mmol/L 22-32 Anion Gap 8 mmol/L 2-11 Glucose 87 mg/dL 70-100 Blood Urea Nitrogen 15 mg/dL 6-24 Creatinine 0.51 mg/dL 0.51-0.95 BUN/Creatinine Ratio 29.4 High 8-20 Calcium 9.4 mg/dL 8.6-10.3 Egfr Non- 120.3 >60 Egfr 154.7 >60 38 CBC Auto Diff 07/10/2015 White Blood Count 7.8 10^3/uL 4.8-10.8 Red Blood Count 4.11 10^6/uL 4.0-5.4 Hemoglobin 13.0 g/dL 12.0-16.0 Hematocrit 39 % 35-47 Mean Corpuscular Volume 96 fL 80-97 Mean Corpuscular Hemoglobin 32 pg High 27-31 Mean Corpuscular HGB Conc 33 g/dL 31-36 Red Cell Distribution Width 13 % 10.5-15 Platelet Count 211 10^3/uL 150-450 Mean Platelet Volume 8 um3 7.4-10.4 Abs Neutrophils 4.9 10^3/uL 1.5-7.7 Abs Lymphocytes 1.8 10^3/uL 1.0-4.8 Abs Monocytes 0.9 10^3/uL High 0-0.8 Abs Eosinophils 0.1 10^3/uL 0-0.6 Abs Basophils 0.1 10^3/uL 0-0.2 Abs Nucleated RBC 0 10^3/uL Granulocyte % 63.0 % 38-83 Lymphocyte % 23.6 % Low 25-47 Monocyte % 11.3 % High 1-9 Eosinophil % 1.1 % 0-6 Basophil % 1.0 % 0-2 Nucleated Red Blood Cells % 0 Comp Metabolic Panel 07/10/2015 Sodium 132 mmol/L Low 133-145 Potassium 4.4 mmol/L 3.5-5.0 Chloride 96 mmol/L Low 101-111 Co2 Carbon Dioxide 29 mmol/L 22-32 Anion Gap 7 mmol/L 2-11 Glucose 83 mg/dL 70-100 Blood Urea Nitrogen 13 mg/dL 6-24 Creatinine 0.51 mg/dL 0.51-0.95 BUN/Creatinine Ratio 25.5 High 8-20 Calcium 9.7 mg/dL 8.6-10.3 Total Protein 6.5 g/dL 6.4-8.9 Albumin 4.3 g/dL 3.2-5.2 Globulin 2.2 g/dL 2-4 Albumin/Globulin Ratio 2.0 1-3 Total Bilirubin 0.30 mg/dL 0.2-1.0 Alkaline Phosphatase 60 U/L 34-104 Alt 12 U/L 7-52 Ast 15 U/L 13-39 Egfr Non- 120.7 >60 Egfr 155.2 >60 39 Vitamin B12 And Folate Serum 07/10/2015 Vitamin B12 894 pg/mL 180-914 40 Folic Acid (Folate) > 20.00 ng/mL >3.99 Laboratory test finding 07/10/2015 TSH (Thyroid Stim Horm) 1.93 ?IU/mL 0.34-5.60 Rae (Antinuclear Antibodies) Reflexed to FA Negative Rheumatoid Factor <15 IU/mL <15 41 Rae Hep-2 07/10/2015 Rae Pattern Homogeneous Negative Rae Titer 1:160 <1:80 Rae Reviewed By MD Nolan Marshall <SEE NOTE> 42 Lipid Profile (Trig/Chol/HDL) 06/25/2015 Triglycerides 150 mg/dL 43 Cholesterol 140 mg/dL 44 HDL Cholesterol 44.7 mg/dL 45 LDL Cholesterol 65 mg/dL 46 Basic Metabolic Panel 06/25/2015 Sodium 134 mmol/L 133-145 Potassium 4.3 mmol/L 3.5-5.0 Chloride 99 mmol/L Low 101-111 Co2 Carbon Dioxide 31 mmol/L 22-32 Anion Gap 4 mmol/L 2-11 Glucose 86 mg/dL 70-100 Blood Urea Nitrogen 11 mg/dL 6-24 Creatinine 0.48 mg/dL Low 0.51-0.95 BUN/Creatinine Ratio 22.9 High 8-20 Calcium 9.6 mg/dL 8.6-10.3 Egfr Non- 129.4 >60 Egfr 166.4 >60 47 Laboratory test finding 06/19/2015 TSH (Thyroid Stim Horm) 2.87 ?IU/mL 0.34-5.60 Cortisol 9.34 ?g/dL 48 Free T4 (Free Thyroxine) 0.89 ng/mL 0.61-1.12 Electrolytes Random Urine 06/19/2015 Urine Random Potassium 118.3 mmol/L Urine Random Chloride 164 mmol/L Laboratory test finding 06/19/2015 Osmolality Urine 635 mOsm/kg 150-1150 Urine Random Sodium 74 mmol/L Osmolality Serum 279 mOsm/kg 275-295 Basic Metabolic Panel 06/15/2015 Sodium 125 mmol/L Low 133-145 Potassium 4.8 mmol/L 3.5-5.0 Chloride 91 mmol/L Low 101-111 Co2 Carbon Dioxide 29 mmol/L 22-32 Anion Gap 5 mmol/L 2-11 Glucose 81 mg/dL 70-100 Blood Urea Nitrogen 11 mg/dL 6-24 Creatinine 0.45 mg/dL Low 0.51-0.95 BUN/Creatinine Ratio 24.4 High 8-20 Calcium 9.2 mg/dL 8.6-10.3 Egfr Non- 139.4 >60 Egfr 179.3 >60 49 CBC Auto Diff 05/05/2015 White Blood Count 8.2 10^3/uL 4.8-10.8 Red Blood Count 4.46 10^6/uL 4.0-5.4 Hemoglobin 14.3 g/dL 12.0-16.0 Hematocrit 43 % 35-47 Mean Corpuscular Volume 96 fL 80-97 Mean Corpuscular Hemoglobin 32 pg High 27-31 Mean Corpuscular HGB Conc 34 g/dL 31-36 Red Cell Distribution Width 14 % 10.5-15 Platelet Count 235 10^3/uL 150-450 Mean Platelet Volume 8 um3 7.4-10.4 Abs Neutrophils 5.8 10^3/uL 1.5-7.7 Abs Lymphocytes 1.5 10^3/uL 1.0-4.8 Abs Monocytes 0.8 10^3/uL 0-0.8 Abs Eosinophils 0 10^3/uL 0-0.6 Abs Basophils 0.1 10^3/uL 0-0.2 Abs Nucleated RBC 0.01 10^3/uL Granulocyte % 70.7 % 38-83 Lymphocyte % 17.9 % Low 25-47 Monocyte % 10.0 % High 1-9 Eosinophil % 0.2 % 0-6 Basophil % 1.2 % 0-2 Nucleated Red Blood Cells % 0.1 Comp Metabolic Panel 05/05/2015 Sodium 127 mmol/L Low 133-145 Potassium 4.1 mmol/L 3.5-5.0 Chloride 92 mmol/L Low 101-111 Co2 Carbon Dioxide 26 mmol/L 22-32 Anion Gap 9 mmol/L 2-11 Glucose 100 mg/dL 70-100 Blood Urea Nitrogen 12 mg/dL 6-24 Creatinine 0.54 mg/dL 0.51-0.95 BUN/Creatinine Ratio 22.2 High 8-20 Calcium 9.7 mg/dL 8.6-10.3 Total Protein 7.3 g/dL 6.4-8.9 Albumin 4.5 g/dL 3.2-5.2 Globulin 2.8 g/dL 2-4 Albumin/Globulin Ratio 1.6 1-3 Total Bilirubin 0.40 mg/dL 0.2-1.0 Alkaline Phosphatase 60 U/L 34-104 Alt 15 U/L 7-52 Ast 18 U/L 13-39 Egfr Non- 113.0 >60 Egfr 145.3 >60 50 Laboratory test finding 05/05/2015 Acetaminophen < 15 g/mL 51 Alcohol < 10 mg/dL <10 Salicylate < 2.50 mg/dL <30 TSH (Thyroid Stim Horm) 2.65 ?IU/mL 0.34-5.60 Valproic Acid (Depakene) 104.0 g/mL High 50-100 Urine Drug SCR ED & 05/05/2015 Amphetamine Ur Screen None Detected None Detect Pain Clinic Barbiturates Urine Screen None Detected None Detect Benzodiazepine Urine Screen None Detected None Detect Urine Cannabinoids Screen None Detected None Detect Urine Cocaine Screen None Detected None Detect Urine Opiates Screen None Detected None Detect Urine Phencyclidine Screen None Detected None Detect 52 Urinalysis Profile 05/05/2015 Urine Color Yellow Urine Appearance Clear Urine Specific [place] 1.017 1.010-1.030 Urine pH 6.0 5-9 Urine Urobilinogen Negative Negative Urine Ketones Trace Negative Urine Protein Negative Negative Urine Leukocytes Negative Negative Urine Blood 1+ Negative * * Negative 53 Urine Nitrite Negative Negative Urine Bilirubin Negative Negative Urine Glucose Negative Negative Urine White Blood Cell Absent Absent Urine Red Blood Cell 3+(>10/hpf) Absent Urine Bacteria Absent Absent HIV 1/2 AB Evaluation 05/05/2015 HIV 1 2 Antibody Nonreactive Nonreactive 54 Comp Metabolic Panel 03/09/2015 Sodium 128 mmol/L Low 133-145 Potassium 4.2 mmol/L 3.5-5.0 Chloride 92 mmol/L Low 101-111 Co2 Carbon Dioxide 30 mmol/L 22-32 Anion Gap 6 mmol/L 2-11 Glucose 84 mg/dL 70-100 Blood Urea Nitrogen 10 mg/dL 6-24 Creatinine 0.44 mg/dL Low 0.51-0.95 BUN/Creatinine Ratio 22.7 High 8-20 Calcium 9.3 mg/dL 8.6-10.3 Total Protein 6.5 g/dL 6.4-8.9 Albumin 4.2 g/dL 3.2-5.2 Globulin 2.3 g/dL 2-4 Albumin/Globulin Ratio 1.8 1-3 Total Bilirubin 0.30 mg/dL 0.2-1.0 Alkaline Phosphatase 52 U/L 34-104 Alt 13 U/L 7-52 Ast 15 U/L 13-39 Egfr Non- 143.1 >60 Egfr 184.0 >60 55 Basic Metabolic Panel 11/13/2014 Sodium 130 mmol/L Low 133-145 Potassium 4.4 mmol/L 3.5-5.0 Chloride 95 mmol/L Low 101-111 Co2 Carbon Dioxide 29 mmol/L 22-32 Anion Gap 6 mmol/L 2-11 Glucose 118 mg/dL High 70-100 Blood Urea Nitrogen 12 mg/dL 6-24 Creatinine 0.47 mg/dL Low 0.51-0.95 BUN/Creatinine Ratio 25.5 High 8-20 Calcium 9.2 mg/dL 8.6-10.3 Egfr Non- 132.6 >60 Egfr 170.5 >60 56 Basic Metabolic Panel 11/06/2014 Sodium 128 mmol/L Low 133-145 Potassium 4.4 mmol/L 3.5-5.0 Chloride 93 mmol/L Low 101-111 Co2 Carbon Dioxide 29 mmol/L 22-32 Anion Gap 6 mmol/L 2-11 Glucose 83 mg/dL 70-100 Blood Urea Nitrogen 11 mg/dL 6-24 Creatinine 0.45 mg/dL Low 0.51-0.95 BUN/Creatinine Ratio 24.4 High 8-20 Calcium 9.5 mg/dL 8.6-10.3 Egfr Non- 139.4 >60 Egfr 179.3 >60 57 Laboratory test finding 10/13/2014 Osmolality Serum 269 mOsm/kg Low 275- 295 58 Urine Osmolality 304 mOsm/kg 150-1150 59 Urine Random Sodium 38 mmol/L Cortisol 7.40 g/dL 60 Uric Acid 3.6 mg/dL 2.3-6.6 Basic Metabolic Panel 10/13/2014 Sodium 126 mmol/L Low 133-145 Potassium 4.7 mmol/L 3.5-5.0 Chloride 93 mmol/L Low 101-111 Co2 Carbon Dioxide 29 mmol/L 22-32 Anion Gap 4 mmol/L 2-11 Glucose 81 mg/dL 70-100 Blood Urea Nitrogen 13 mg/dL 6-24 Creatinine 0.49 mg/dL Low 0.51-0.95 BUN/Creatinine Ratio 26.5 High 8-20 Calcium 9.3 mg/dL 8.6-10.3 Egfr Non- 126.4 >60 Egfr 162.5 >60 61 Basic Metabolic Panel 10/09/2014 Sodium 128 mmol/L Low 133-145 Potassium 4.3 mmol/L 3.5-5.0 Chloride 93 mmol/L Low 101-111 Co2 Carbon Dioxide 29 mmol/L 22-32 Anion Gap 6 mmol/L 2-11 Glucose 85 mg/dL 70-100 Blood Urea Nitrogen 16 mg/dL 6-24 Creatinine 0.50 mg/dL Low 0.51-0.95 BUN/Creatinine Ratio 32.0 High 8-20 Calcium 9.5 mg/dL 8.6-10.3 Egfr Non- 123.4 >60 Egfr 158.8 >60 62 CBC Auto Diff 10/09/2014 White Blood Count 6.1 10^3/uL 4.8-10.8 Red Blood Count 3.91 10^6/uL Low 4.0-5.4 Hemoglobin 12.4 g/dL 12.0-16.0 Hematocrit 36 % 35-47 Mean Corpuscular Volume 92 fL 80-97 Mean Corpuscular Hemoglobin 32 pg High 27-31 Mean Corpuscular HGB Conc 34 g/dL 31-36 Red Cell Distribution Width 15 % 10.5-15 Platelet Count 203 10^3/uL 150-450 Mean Platelet Volume 8 um3 7.4-10.4 Abs Neutrophils 3.3 10^3/uL 1.5-7.7 Abs Lymphocytes 1.9 10^3/uL 1.0-4.8 Abs Monocytes 0.8 10^3/uL 0-0.8 Abs Eosinophils 0.1 10^3/uL 0-0.6 Abs Basophils 0 10^3/uL 0-0.2 Abs Nucleated RBC 0 10^3/uL Granulocyte % 53.3 % 38-83 Lymphocyte % 31.2 % 25-47 Monocyte % 12.6 % High 1-9 Eosinophil % 2.1 % 0-6 Basophil % 0.8 % 0-2 Nucleated Red Blood Cells % 0 Basic Metabolic Panel 09/06/2014 Sodium 133 mmol/L 133-145 Potassium 4.2 mmol/L 3.5-5.0 Chloride 98 mmol/L Low 101-111 Co2 Carbon Dioxide 31 mmol/L 22-32 Anion Gap 4 mmol/L 2-11 Glucose 75 mg/dL 70-100 Blood Urea Nitrogen 15 mg/dL 6-24 Creatinine 0.46 mg/dL Low 0.51-0.95 BUN/Creatinine Ratio 32.6 High 8-20 Calcium 9.0 mg/dL 8.6-10.3 Egfr Non- 135.9 >60 Egfr 174.8 >60 63 Laboratory test finding 08/28/2014 TSH (Thyroid Stimulating 1.52 IU/mL 0.34-5.60 Horm) Lipid Profile 08/28/2014 Triglycerides 58 mg/dL 64 (Trig/Chol/HDL) Cholesterol 118 mg/dL 65 HDL Cholesterol 45.2 mg/dL 66 LDL Cholesterol 61 mg/dL 67 Comp Metabolic Panel 08/28/2014 Sodium 132 mmol/L Low 133-145 Potassium 4.0 mmol/L 3.5-5.0 Chloride 98 mmol/L Low 101-111 Co2 Carbon Dioxide 28 mmol/L 22-32 Anion Gap 6 mmol/L 2-11 Glucose 79 mg/dL 70-100 Blood Urea Nitrogen 8 mg/dL 6-24 Creatinine 0.41 mg/dL Low 0.51-0.95 BUN/Creatinine Ratio 19.5 8-20 Calcium 8.8 mg/dL 8.6-10.3 Total Protein 5.5 g/dL Low 6.4-8.9 Albumin 3.5 g/dL 3.2-5.2 Globulin 2.0 g/dL 2-4 Albumin/Globulin Ratio 1.8 1-3 Total Bilirubin 0.20 mg/dL 0.2-1.0 Alkaline Phosphatase 45 U/L 34-104 Alt 8 U/L 7-52 Ast 10 U/L Low 13-39 Egfr Non- 155.2 >60 Egfr 199.6 >60 68 Basic Metabolic Panel 08/25/2014 Sodium 131 mmol/L Low 133-145 Potassium 4.2 mmol/L 3.5-5.0 Chloride 97 mmol/L Low 101-111 Co2 Carbon Dioxide 31 mmol/L 22-32 Anion Gap 3 mmol/L 2-11 Glucose 80 mg/dL 70-100 Blood Urea Nitrogen 12 mg/dL 6-24 Creatinine 0.46 mg/dL Low 0.51-0.95 BUN/Creatinine Ratio 26.1 High 8-20 Calcium 9.4 mg/dL 8.6-10.3 Egfr Non- 135.9 >60 Egfr 174.8 >60 69 Wound Culture/Sensi 08/25/2014 Wound/Misc Culture-Gram Stain (SEE NOTE) 70 HSV/VZV Derm PCR 08/25/2014 hs/VZ Source HAND HSV 1 PCR Negative Negative HSV 2 PCR Negative Negative 71 Varicella Zoster Source HAND Varicella Zoster Result Negative Negative 72 1 Desirable: <150 Borderline High: 150-199 High: 200-499 Very High: >500 2 Desirable: <200 Borderline High: 200-239 High: >239 3 Low: <40 Desirable: 40-60 High: >60 4 Desirable: <100 Near Optimal: 100-129 Borderline High: 130-159 High: 160-189 Very High: >189 5 Because ethnic data is not always readily available, this report includes an eGFR for both -Americans and non- Americans. The National Kidney Disease Education Program (NKDEP) does not endorse the use of the MDRD equation for patients that are not between the ages of 18 and 70, are , have extremes of body size, muscle mass, or nutritional status, or are non- or non-. According to the National Kidney Foundation, irrespective of diagnosis, the stage of the disease is based on the level of kidney function: Stage Description GFR(mL/min/1.73 m(2)) 1 Kidney damage with normal or decreased GFR 90 2 Kidney damage with mild decrease in GFR 60-89 3 Moderate decrease in GFR 30-59 4 Severe decrease in GFR 15-29 5 Kidney failure <15 (or dialysis) 6 Because ethnic data is not always readily available, this report includes an eGFR for both -Americans and non- Americans. The National Kidney Disease Education Program (NKDEP) does not endorse the use of the MDRD equation for patients that are not between the ages of 18 and 70, are , have extremes of body size, muscle mass, or nutritional status, or are non- or non-. According to the National Kidney Foundation, irrespective of diagnosis, the stage of the disease is based on the level of kidney function: Stage Description GFR(mL/min/1.73 m(2)) 1 Kidney damage with normal or decreased GFR 90 2 Kidney damage with mild decrease in GFR 60-89 3 Moderate decrease in GFR 30-59 4 Severe decrease in GFR 15-29 5 Kidney failure <15 (or dialysis) 7 [id number] SEE RESULT BELOW Name: AMY VELASA Rucker : [address]: Richy Lyles MD Acct: [id number] Unit: [id number] AGE: 66 Location: [facility] Re06/02/17 SEX: F Status: DEP REF SPEC: [id number] FESTUS: 06/02/17 [facility] DR: Richy Lyles MD REQ: [id number] RECD: 06/02/17 STATUS: KAYE CAZARES DR: Huber Riley MD _ SOURCE: GAS ANTRUM SPDESC: ORDERED: Clotest COMMENTS: [id number] Procedure Result Reported Site Clotest Final 06/03/17 0897 ML Clotest Negative * ML - MAIN LAB ([facility]) . END OF REPORT * ML=Testing performed at Main Lab DEPARTMENT OF PATHOLOGY, [address] [place] [address] Nolan Gomez M.D. Director [facility] # [id number] 9 [id number] SEE RESULT BELOW Name: CORINNA VELA : [address]: Richy Lyles MD Acct: [id number] Unit: [id number] AGE: 66 Location: [facility] Re06/02/17 SEX: F Status: DEP REF SPEC: [id number] FESTUS: 06/02/17- SUBM DR: Richy Lyles MD REQ: [id number] RECD: 06/02/171150 STATUS: SEYMOUR CAZARES DR: Huber Riley MD _ ORDERED: LEVEL 4/2 COMMENTS: [id number] FINAL DIAGNOSIS 1. Duodenum, biopsy: -- Benign duodenal mucosa with no significant pathologic abnormalities. -- No evidence of villous blunting or increased intraepithelial lymphocytes. 2. Stomach, fundus, biopsy: -- Fundic gland polyp. CLINICAL HISTORY No history given POST-OPERATIVE DIAGNOSIS Esophagus - normal; stomach - few erosions, biopsied; duodenum - normal, biopsied GROSS DESCRIPTION 1. The specimen is received in formalin labeled, Duodenal Biopsies, and consists of two eubanks irregular soft tissue fragments measuring 0.2 x 0.2 x 0.2 cm and 0.4 x 0.2 x 0.1 cm which are submitted entirely in one cassette. 2. The specimen is received in formalin labeled, Biopsy Fundus Polyp, and consists of a 0.4 x 0.2 x 0.2 cm eubanks-pink irregular soft tissue fragment which is submitted entirely in one cassette. Signed (signature on file) Tasneem Alva MD 12/15 1035 END OF REPORT * ML=Testing performed at Main Lab DEPARTMENT OF PATHOLOGY, [address] [place] [address] Nolan Gomez M.D. Director [facility] # [id number] Normal Range 180 to 914 Indeterminate Range 145 to 180 Deficient Range <145 12 SEE RESULT BELOW Name: AMY VELASA Rucker : [address]: Huber Riley MD Acct: [id number] Unit: [id number] AGE: 66 Location: [facility] Re05/15/17 SEX: F Status: REG REF SPEC: [id number] FESTUS: 05/15/17-[address]: Huber Riley MD REQ: [id number] RECD: 05/18/17 STATUS: COMP _ SOURCE: STOOL SPDESC: ORDERED: Occult Bl, Diag COMMENTS: [id number] Procedure Result Reported Site Stool Occult Blood (1) Final 05/18/17- 1958 ML Stool Occult Blood Positive Collection Date (1) 05/18/17 Stool Occult Blood (2) Final 05/18/17- 1958 ML Stool Occult Blood Negative Collection Date (2) 05/18/17 Stool Occult Blood (3) Final 05/18/17- 1958 ML Stool Occult Blood Negative Collection Date (3) 05/18/17 * ML - [facility] ([facility]) . END OF REPORT * ML=Testing performed at Main Lab DEPARTMENT OF PATHOLOGY, [address] [place] [address] Nolan Gomez M.D. Director [facility] # [id number] 13 Serologic response to B. burgdorferi infection is not detected, but cannot rule out early infection during which low or undetectable antibody levels to B. burgdorferi may be present. If clinically indicated, a new serum specimen should be submitted in 7-14 days. Test Performed by: [address] [address] 14 Because ethnic data is not always readily available, this report includes an eGFR for both -Americans and non- Americans. The National Kidney Disease Education Program (NKDEP) does not endorse the use of the MDRD equation for patients that are not between the ages of 18 and 70, are , have extremes of body size, muscle mass, or nutritional status, or are non- or non-. According to the National Kidney Foundation, irrespective of diagnosis, the stage of the disease is based on the level of kidney function: Stage Description GFR(mL/min/1.73 m(2)) 1 Kidney damage with normal or decreased GFR 90 2 Kidney damage with mild decrease in GFR 60-89 3 Moderate decrease in GFR 30-59 4 Severe decrease in GFR 15-29 5 Kidney failure <15 (or dialysis) 15 Because ethnic data is not always readily available, this report includes an eGFR for both -Americans and non- Americans. The National Kidney Disease Education Program (NKDEP) does not endorse the use of the MDRD equation for patients that are not between the ages of 18 and 70, are , have extremes of body size, muscle mass, or nutritional status, or are non- or non-. According to the National Kidney Foundation, irrespective of diagnosis, the stage of the disease is based on the level of kidney function: Stage Description GFR(mL/min/1.73 m(2)) 1 Kidney damage with normal or decreased GFR 90 2 Kidney damage with mild decrease in GFR 60-89 3 Moderate decrease in GFR 30-59 4 Severe decrease in GFR 15-29 5 Kidney failure <15 (or dialysis) 16 Because ethnic data is not always readily available, this report includes an eGFR for both -Americans and non- Americans. The National Kidney Disease Education Program (NKDEP) does not endorse the use of the MDRD equation for patients that are not between the ages of 18 and 70, are , have extremes of body size, muscle mass, or nutritional status, or are non- or non-. According to the National Kidney Foundation, irrespective of diagnosis, the stage of the disease is based on the level of kidney function: Stage Description GFR(mL/min/1.73 m(2)) 1 Kidney damage with normal or decreased GFR 90 2 Kidney damage with mild decrease in GFR 60-89 3 Moderate decrease in GFR 30-59 4 Severe decrease in GFR 15-29 5 Kidney failure <15 (or dialysis) 17 SEE RESULT BELOW Name: CORINNA VELA : [address]: Huber Riley MD Acct: [id number] Unit: [id number] AGE: 66 Location: [facility] Re12/03/16 SEX: F Status: REG REF SPEC: [id number] FESTUS: 12/03/16-9 [facility] DR: Huber Riley MD REQ: [id number] RECD: 12/03/16 STATUS: COMP _ SOURCE: URINE SPDESC: ORDERED: Urine Culture COMMENTS: [id number] Urine Source: Random Procedure Result Reported Site Urine Culture Final 12/04/16- 1657 ML No Growth (<1,000 CFU/mL) * ML - MAIN LAB ([facility]) . END OF REPORT * ML=Testing performed at Main Lab DEPARTMENT OF PATHOLOGY, [address] [place] [address] Nolan Gomez M.D. Director [facility] # [id number] 18 Desirable <150 Borderline high 150-199 High 200-499 Very High >500 19 Desirable <200 Borderline high 200-239 High >239 20 Low <40 Desirable: 40-60 High: >60 21 Desirable: <100 mg/dL Near Optimal: 100-129 mg/dL Borderline High: 130-159 mg/dL High: 160-189 mg/dL Very High: >189 mg/dL 22 Because ethnic data is not always readily available, this report includes an eGFR for both -Americans and non- Americans. The National Kidney Disease Education Program (NKDEP) does not endorse the use of the MDRD equation for patients that are not between the ages of 18 and 70, are , have extremes of body size, muscle mass, or nutritional status, or are non- or non-. According to the National Kidney Foundation, irrespective of diagnosis, the stage of the disease is based on the level of kidney function: Stage Description GFR(mL/min/1.73 m(2)) 1 Kidney damage with normal or decreased GFR 90 2 Kidney damage with mild decrease in GFR 60-89 3 Moderate decrease in GFR 30-59 4 Severe decrease in GFR 15-29 5 Kidney failure <15 (or dialysis) 23 Because ethnic data is not always readily available, this report includes an eGFR for both -Americans and non- Americans. The National Kidney Disease Education Program (NKDEP) does not endorse the use of the MDRD equation for patients that are not between the ages of 18 and 70, are , have extremes of body size, muscle mass, or nutritional status, or are non- or non-. According to the National Kidney Foundation, irrespective of diagnosis, the stage of the disease is based on the level of kidney function: Stage Description GFR(mL/min/1.73 m(2)) 1 Kidney damage with normal or decreased GFR 90 2 Kidney damage with mild decrease in GFR 60-89 3 Moderate decrease in GFR 30-59 4 Severe decrease in GFR 15-29 5 Kidney failure <15 (or dialysis) 24 [id number] 26 Serologic response to B. burgdorferi infection is not detected, but cannot rule out early infection during which low or undetectable antibody levels to B. burgdorferi may be present. If clinically indicated, a new serum specimen should be submitted in 7-14 days. Test Performed by: [place] [address] Brass Chaser: Jonathan Kerr II, M.D., Ph.D. 27 Low risk: <1.00 Average risk: 1.00-3.00 High risk: >3.00 28 Because ethnic data is not always readily available, this report includes an eGFR for both -Americans and non- Americans. The National Kidney Disease Education Program (NKDEP) does not endorse the use of the MDRD equation for patients that are not between the ages of 18 and 70, are , have extremes of body size, muscle mass, or nutritional status, or are non- or non-. According to the National Kidney Foundation, irrespective of diagnosis, the stage of the disease is based on the level of kidney function: Stage Description GFR(mL/min/1.73 m(2)) 1 Kidney damage with normal or decreased GFR 90 2 Kidney damage with mild decrease in GFR 60-89 3 Moderate decrease in GFR 30-59 4 Severe decrease in GFR 15-29 5 Kidney failure <15 (or dialysis) 29 Because ethnic data is not always readily available, this report includes an eGFR for both -Americans and non- Americans. The National Kidney Disease Education Program (NKDEP) does not endorse the use of the MDRD equation for patients that are not between the ages of 18 and 70, are , have extremes of body size, muscle mass, or nutritional status, or are non- or non-. According to the National Kidney Foundation, irrespective of diagnosis, the stage of the disease is based on the level of kidney function: Stage Description GFR(mL/min/1.73 m(2)) 1 Kidney damage with normal or decreased GFR 90 2 Kidney damage with mild decrease in GFR 60-89 3 Moderate decrease in GFR 30-59 4 Severe decrease in GFR 15-29 5 Kidney failure <15 (or dialysis) 30 Because ethnic data is not always readily available, this report includes an eGFR for both -Americans and non- Americans. The National Kidney Disease Education Program (NKDEP) does not endorse the use of the MDRD equation for patients that are not between the ages of 18 and 70, are , have extremes of body size, muscle mass, or nutritional status, or are non- or non-. According to the National Kidney Foundation, irrespective of diagnosis, the stage of the disease is based on the level of kidney function: Stage Description GFR(mL/min/1.73 m(2)) 1 Kidney damage with normal or decreased GFR 90 2 Kidney damage with mild decrease in GFR 60-89 3 Moderate decrease in GFR 30-59 4 Severe decrease in GFR 15-29 5 Kidney failure <15 (or dialysis) 31 Because ethnic data is not always readily available, this report includes an eGFR for both -Americans and non- Americans. The National Kidney Disease Education Program (NKDEP) does not endorse the use of the MDRD equation for patients that are not between the ages of 18 and 70, are , have extremes of body size, muscle mass, or nutritional status, or are non- or non-. According to the National Kidney Foundation, irrespective of diagnosis, the stage of the disease is based on the level of kidney function: Stage Description GFR(mL/min/1.73 m(2)) 1 Kidney damage with normal or decreased GFR 90 2 Kidney damage with mild decrease in GFR 60-89 3 Moderate decrease in GFR 30-59 4 Severe decrease in GFR 15-29 5 Kidney failure <15 (or dialysis) 32 Critical Result LACT:2.5 Called to [id number] at: 11:46:15 by:[id number] Read back by:[id number] [place] Severe Sepsis and Septic Shock Management Bundle Measure requires all lactic acids initially measuring >2.0mmol/L be repeated. 33 Because ethnic data is not always readily available, this report includes an eGFR for both -Americans and non- Americans. The National Kidney Disease Education Program (NKDEP) does not endorse the use of the MDRD equation for patients that are not between the ages of 18 and 70, are , have extremes of body size, muscle mass, or nutritional status, or are non- or non-. According to the National Kidney Foundation, irrespective of diagnosis, the stage of the disease is based on the level of kidney function: Stage Description GFR(mL/min/1.73 m(2)) 1 Kidney damage with normal or decreased GFR 90 2 Kidney damage with mild decrease in GFR 60-89 3 Moderate decrease in GFR 30-59 4 Severe decrease in GFR 15-29 5 Kidney failure <15 (or dialysis) 34 Therapeutic concentration: <50 ug/mL Toxic concentration: >120 ug/mL 35 SEE RESULT BELOW Name: CORINNA VELA : [address]: Des Flores MD Acct: [id number] Unit: [id number] AGE: 65 Location: ICU [id number] Re10/26/15 SEX: F Status: ADM IN SPEC: [id number] FESTUS: 10/26/15 [facility] DR: Hayder VALENZUELA REQ: [id number] RECD: 10/26/15 STATUS: KAYE CAZARES DR: Huber Padilla MD _ SOURCE: URINE SPDESC: ORDERED: Urine Culture Procedure Result Reported Site Urine Culture Final 10/28/15- 0742 ML Mixed laurie; possible contamination. Suggest resubmission. * ML - MAIN LAB (PSC1) . END OF REPORT * ML=Testing performed at Main Lab DEPARTMENT OF PATHOLOGY, [address] [place] [address] Nolan Gomez M.D. Director [facility] # [id number] Collar Baster Jumpbasting: [id number] DARRIN MAJANO 37 Because ethnic data is not always readily available, this report includes an eGFR for both -Americans and non- Americans. The National Kidney Disease Education Program (NKDEP) does not endorse the use of the MDRD equation for patients that are not between the ages of 18 and 70, are , have extremes of body size, muscle mass, or nutritional status, or are non- or non-. According to the National Kidney Foundation, irrespective of diagnosis, the stage of the disease is based on the level of kidney function: Stage Description GFR(mL/min/1.73 m(2)) 1 Kidney damage with normal or decreased GFR 90 2 Kidney damage with mild decrease in GFR 60-89 3 Moderate decrease in GFR 30-59 4 Severe decrease in GFR 15-29 5 Kidney failure <15 (or dialysis) 38 Because ethnic data is not always readily available, this report includes an eGFR for both -Americans and non- Americans. The National Kidney Disease Education Program (NKDEP) does not endorse the use of the MDRD equation for patients that are not between the ages of 18 and 70, are , have extremes of body size, muscle mass, or nutritional status, or are non- or non-. According to the National Kidney Foundation, irrespective of diagnosis, the stage of the disease is based on the level of kidney function: Stage Description GFR(mL/min/1.73 m(2)) 1 Kidney damage with normal or decreased GFR 90 2 Kidney damage with mild decrease in GFR 60-89 3 Moderate decrease in GFR 30-59 4 Severe decrease in GFR 15-29 5 Kidney failure <15 (or dialysis) 39 Because ethnic data is not always readily available, this report includes an eGFR for both -Americans and non- Americans. The National Kidney Disease Education Program (NKDEP) does not endorse the use of the MDRD equation for patients that are not between the ages of 18 and 70, are , have extremes of body size, muscle mass, or nutritional status, or are non- or non-. According to the National Kidney Foundation, irrespective of diagnosis, the stage of the disease is based on the level of kidney function: Stage Description GFR(mL/min/1.73 m(2)) 1 Kidney damage with normal or decreased GFR 90 2 Kidney damage with mild decrease in GFR 60-89 3 Moderate decrease in GFR 30-59 4 Severe decrease in GFR 15-29 5 Kidney failure <15 (or dialysis) 40 Normal Range 180 to 914 Indeterminate Range 145 to 180 Deficient Range <145 41 Test Performed by: [place] [id number] Brass Chaser: Jonathan Kerr II, M.D., Ph.D. 42 Nolan Gomez 43 Desirable <150 Borderline high 150-199 High 200-499 Very High >500 44 Desirable <200 Borderline high 200-239 High >239 45 Low <40 Desirable: 40-60 High: >60 46 Desirable: <100 mg/dL Near Optimal: 100-129 mg/dL Borderline High: 130-159 mg/dL High: 160-189 mg/dL Very High: >189 mg/dL 47 Because ethnic data is not always readily available, this report includes an eGFR for both -Americans and non- Americans. The National Kidney Disease Education Program (NKDEP) does not endorse the use of the MDRD equation for patients that are not between the ages of 18 and 70, are , have extremes of body size, muscle mass, or nutritional status, or are non- or non-. According to the National Kidney Foundation, irrespective of diagnosis, the stage of the disease is based on the level of kidney function: Stage Description GFR(mL/min/1.73 m(2)) 1 Kidney damage with normal or decreased GFR 90 2 Kidney damage with mild decrease in GFR 60-89 3 Moderate decrease in GFR 30-59 4 Severe decrease in GFR 15-29 5 Kidney failure <15 (or dialysis) 48 AM 8.7-22.4 PM <10 49 Because ethnic data is not always readily available, this report includes an eGFR for both -Americans and non- Americans. The National Kidney Disease Education Program (NKDEP) does not endorse the use of the MDRD equation for patients that are not between the ages of 18 and 70, are , have extremes of body size, muscle mass, or nutritional status, or are non- or non-. According to the National Kidney Foundation, irrespective of diagnosis, the stage of the disease is based on the level of kidney function: Stage Description GFR(mL/min/1.73 m(2)) 1 Kidney damage with normal or decreased GFR 90 2 Kidney damage with mild decrease in GFR 60-89 3 Moderate decrease in GFR 30-59 4 Severe decrease in GFR 15-29 5 Kidney failure <15 (or dialysis) 50 Because ethnic data is not always readily available, this report includes an eGFR for both -Americans and non- Americans. The National Kidney Disease Education Program (NKDEP) does not endorse the use of the MDRD equation for patients that are not between the ages of 18 and 70, are , have extremes of body size, muscle mass, or nutritional status, or are non- or non-. According to the National Kidney Foundation, irrespective of diagnosis, the stage of the disease is based on the level of kidney function: Stage Description GFR(mL/min/1.73 m(2)) 1 Kidney damage with normal or decreased GFR 90 2 Kidney damage with mild decrease in GFR 60-89 3 Moderate decrease in GFR 30-59 4 Severe decrease in GFR 15-29 5 Kidney failure <15 (or dialysis) 51 Therapeutic concentration: <50 ug/mL Toxic concentration: >120 ug/mL 52 The urine specimen was tested at the listed cutoffs: Drug class test level (ng/mL) Amphetamines 500 Barbituates 200 Benzodiazepine metabolites 200 Cocaine metabolites 150 Cannabinoids 50 Opiates 300 Pcp 25 This is a screening procedure. Positive results are not confirmed. Specimen was received without chain of custody. Results should be used for medical purposes only. 53 *Ascorbic acid is present which may interfere with detection of blood. 54 It is recognized that currently available assays for the detection of antibodies to HIV-1 and/or HIV-2 may not detect all infected individuals. HIV antibodies may be undetectable in some stages of the infection and in some clinical conditions. The performance of this assay has not been established for populations of infants or children. Assayed by Chemiluminescence Microparticle Immunoassay on the Siemens Advia Centaur CP. Values obtained with different methods or kits cannot be used interchangeably.The diagnostic specificity of the ADVIA Centaur 1/O/2 Enhanced assay in the low risk population was 99.90% (6052/6058) with a 95% confidence interval of 99.78 to 99.96%. 55 Because ethnic data is not always readily available, this report includes an eGFR for both -Americans and non- Americans. The National Kidney Disease Education Program (NKDEP) does not endorse the use of the MDRD equation for patients that are not between the ages of 18 and 70, are , have extremes of body size, muscle mass, or nutritional status, or are non- or non-. According to the National Kidney Foundation, irrespective of diagnosis, the stage of the disease is based on the level of kidney function: Stage Description GFR(mL/min/1.73 m(2)) 1 Kidney damage with normal or decreased GFR 90 2 Kidney damage with mild decrease in GFR 60-89 3 Moderate decrease in GFR 30-59 4 Severe decrease in GFR 15-29 5 Kidney failure <15 (or dialysis) 56 Because ethnic data is not always readily available, this report includes an eGFR for both -Americans and non- Americans. The National Kidney Disease Education Program (NKDEP) does not endorse the use of the MDRD equation for patients that are not between the ages of 18 and 70, are , have extremes of body size, muscle mass, or nutritional status, or are non- or non-. According to the National Kidney Foundation, irrespective of diagnosis, the stage of the disease is based on the level of kidney function: Stage Description GFR(mL/min/1.73 m(2)) 1 Kidney damage with normal or decreased GFR 90 2 Kidney damage with mild decrease in GFR 60-89 3 Moderate decrease in GFR 30-59 4 Severe decrease in GFR 15-29 5 Kidney failure <15 (or dialysis) 57 Because ethnic data is not always readily available, this report includes an eGFR for both -Americans and non- Americans. The National Kidney Disease Education Program (NKDEP) does not endorse the use of the MDRD equation for patients that are not between the ages of 18 and 70, are , have extremes of body size, muscle mass, or nutritional status, or are non- or non-. According to the National Kidney Foundation, irrespective of diagnosis, the stage of the disease is based on the level of kidney function: Stage Description GFR(mL/min/1.73 m(2)) 1 Kidney damage with normal or decreased GFR 90 2 Kidney damage with mild decrease in GFR 60-89 3 Moderate decrease in GFR 30-59 4 Severe decrease in GFR 15-29 5 Kidney failure <15 (or dialysis) 58 NOTE: REFERENCE RANGE CHANGE ON 12/20/2013. 59 NOTE: REFERENCE RANGE CHANGE ON 12/20/2013. 60 AM 8.7-22.4 PM <10 61 Because ethnic data is not always readily available, this report includes an eGFR for both -Americans and non- Americans. The National Kidney Disease Education Program (NKDEP) does not endorse the use of the MDRD equation for patients that are not between the ages of 18 and 70, are , have extremes of body size, muscle mass, or nutritional status, or are non- or non-. According to the National Kidney Foundation, irrespective of diagnosis, the stage of the disease is based on the level of kidney function: Stage Description GFR(mL/min/1.73 m(2)) 1 Kidney damage with normal or decreased GFR 90 2 Kidney damage with mild decrease in GFR 60-89 3 Moderate decrease in GFR 30-59 4 Severe decrease in GFR 15-29 5 Kidney failure <15 (or dialysis) 62 Because ethnic data is not always readily available, this report includes an eGFR for both -Americans and non- Americans. The National Kidney Disease Education Program (NKDEP) does not endorse the use of the MDRD equation for patients that are not between the ages of 18 and 70, are , have extremes of body size, muscle mass, or nutritional status, or are non- or non-. According to the National Kidney Foundation, irrespective of diagnosis, the stage of the disease is based on the level of kidney function: Stage Description GFR(mL/min/1.73 m(2)) 1 Kidney damage with normal or decreased GFR 90 2 Kidney damage with mild decrease in GFR 60-89 3 Moderate decrease in GFR 30-59 4 Severe decrease in GFR 15-29 5 Kidney failure <15 (or dialysis) 63 Because ethnic data is not always readily available, this report includes an eGFR for both -Americans and non- Americans. The National Kidney Disease Education Program (NKDEP) does not endorse the use of the MDRD equation for patients that are not between the ages of 18 and 70, are , have extremes of body size, muscle mass, or nutritional status, or are non- or non-. According to the National Kidney Foundation, irrespective of diagnosis, the stage of the disease is based on the level of kidney function: Stage Description GFR(mL/min/1.73 m(2)) 1 Kidney damage with normal or decreased GFR 90 2 Kidney damage with mild decrease in GFR 60-89 3 Moderate decrease in GFR 30-59 4 Severe decrease in GFR 15-29 5 Kidney failure <15 (or dialysis) 64 Desirable <150 Borderline high 150-199 High 200-499 Very High >500 65 Desirable <200 Borderline high 200-239 High >239 66 Low <40 Desirable: 40-60 High: >60 67 Desirable <100 Near Optimal 100-129 Borderline high 130-159 High 160-189 Very High >189 68 Because ethnic data is not always readily available, this report includes an eGFR for both -Americans and non- Americans. The National Kidney Disease Education Program (NKDEP) does not endorse the use of the MDRD equation for patients that are not between the ages of 18 and 70, are , have extremes of body size, muscle mass, or nutritional status, or are non- or non-. According to the National Kidney Foundation, irrespective of diagnosis, the stage of the disease is based on the level of kidney function: Stage Description GFR(mL/min/1.73 m(2)) 1 Kidney damage with normal or decreased GFR 90 2 Kidney damage with mild decrease in GFR 60-89 3 Moderate decrease in GFR 30-59 4 Severe decrease in GFR 15-29 5 Kidney failure <15 (or dialysis) 69 Because ethnic data is not always readily available, this report includes an eGFR for both -Americans and non- Americans. The National Kidney Disease Education Program (NKDEP) does not endorse the use of the MDRD equation for patients that are not between the ages of 18 and 70, are , have extremes of body size, muscle mass, or nutritional status, or are non- or non-. According to the National Kidney Foundation, irrespective of diagnosis, the stage of the disease is based on the level of kidney function: Stage Description GFR(mL/min/1.73 m(2)) 1 Kidney damage with normal or decreased GFR 90 2 Kidney damage with mild decrease in GFR 60-89 3 Moderate decrease in GFR 30-59 4 Severe decrease in GFR 15-29 5 Kidney failure <15 (or dialysis) 70 RUN DATE: 08/27/14 [facility] LAB LIVE PAGE 1 RUN TIME: [id number] [place] [id number] Specimen Inquiry Name: DANECORINNA : [address]: Huber Riley MD Acct: [id number] Unit: [id number] AGE: 64 Location: [facility] Re08/25/14 SEX: F Status: REG REF SPEC: [id number] FESTUS: 08/25/14 [facility] DR: Huber Riley MD REQ: [id number] RECD: 08/25/14 STATUS: COMP _ SOURCE: HAND,LEFT SPDESC: ORDERED: Culture Stain QUERIES: Medent Number [id number] Specimen Description LEFT PALM Procedure Result Verified Site Wound/Misc Gram Stain Final 08/26/14- 0741 ML No Neutrophils Observed 2+ Epithelial Cells 1+ Gram Positive Cocci 1+ Gram Positive Bacilli Wound/Misc Culture Final 08/27/14- 1256 ML Organism 1 NORMAL LAURIE Quantity 1+ END OF REPORT * ML=Testing performed at Main Lab DEPARTMENT OF PATHOLOGY, [address] [place] [address] Nolan Gomez M.D. Director [facility] # [id number] ADDITIONAL INFORMATION Analyte Specific Reagent: This test was developed and its performance characteristics determined by [facility]. It has not been cleared or approved by the U.S. Food and Drug Administration. 72 ADDITIONAL INFORMATION Laboratory developed test. Test Performed by: [facility] - [address] [address] Brass Chaser: José Luis Abernathy M.D. Procedures Date CPT Code Description Status 02/26/2018 Inj/Aspir Major JT Or Bursa W/ US Completed 02/25/2018 Bone Mineral Density Test Completed 12/25/2017 Mammogram Completed 05/14/2017 Inject/Drain Joint/Bursa Major W/O US Completed 12/11/2016 Mammogram Completed 10/28/2016 Mammogram Completed 04/15/2016 87937 EKG Tracing & Interpretation Completed 11/01/2015 46265 Insert Non-Tunneled Venous Catether Completed 08/16/2015 88068 Holter Monitor Review (24 hr)dr review & interp only Completed 08/15/2015 57462 ECG Monitor/Recording W/Visual Superimposition Scanning Completed 08/07/2015 04609 ECHO Stress Test Incl Perf Contiuous ekg Monitoring Completed W/Phys Superv 07/31/2015 30636 ECHO Transthoracic, Real-Time 2D With Doppler And Color Completed Flow 07/18/2015 72852 EKG Tracing & Interpretation Completed 07/10/2015 87149 EKG Tracing & Interpretation Completed 10/12/2014 46575 ECHO Transthorasic Realtime 2D W Doppler & Color Flow Completed Hosp 10/11/2014 22917 EKG Tracing & Interpretation Completed 10/09/2014 74773 EKG Tracing & Interpretation Completed 08/04/2014 57585 ECHO Transthorasic Realtime 2D W Doppler & Color Flow Completed Hosp 08/04/2014 34605 EEG Recording Awake & Drowsy Completed 08/03/2014 83298 EKG, Interpretation Only Completed 11/29/2013 Colonoscopy Completed 11/29/2013 Mammogram Completed Encounters Type Date Location Provider CPT E/M Dx Office Visit 11/05/2017 11:20a [facility] Huber Riley, 31756 I10 - [place] Keanu Hernandez E78.2 K21.9 E87.1 Office Visit 07/01/2017 9:40a [facility] Huber Riley M.D. 22564 I10 - [place] E87.1 E78.2 K21.9 Office Visit 05/20/2017 10:00a [facility] Internal Huber Riley, 78764 M25.562 Medicine - Eliezer Hernandez D64.9 E87.1 Office Visit 05/14/2017 8:00a [facility] [place] [address] M17.12 C.M.A. M21.062 Office Visit 05/11/2017 2:50p [facility] Huber Riley, 62598 M25.562 Medicine - [place] Keanu Hernandez Office Visit 04/01/2017 7:40a [facility] Huber Riley 99396 R10.9 Medicine - Eliezer Hernandez E87.1 Office Visit 03/25/2017 8:20a [facility] Huber Riley M.D. 53780 I10 - [place] E87.1 E78.2 R10.30 Office Visit 03/04/2017 8:40a [facility] Huber Riley 39520 K29.61 Medicine Joanne Martins M.D. R10.84 Office Visit 12/24/2016 10:00a [facility] Huber Riley M.D. 02871 I10 - [place] E87.1 E78.2 Office Visit 12/03/2016 2:40p [facility] Huber Riley 80016 R35.0 - Eliezer Hernandez K12.30 Office Visit 10/01/2016 9:40a [facility] Huber Riley M.D. 38612 I10 - [place] E87.1 E78.2 Office Visit 06/25/2016 9:40a [facility] Huber Riley M.D. 29116 I10 - [place] E87.1 E78.2 L23.9 L84 Office Visit 04/15/2016 8:20a [facility] Roel Collier, 93141 R55 Mary Office Visit 03/11/2016 8:20a [facility] Medicine Huber Riley, 04867 L23.9 - [address] [address] Mary K12.1 B00.9 Office Visit 03/04/2016 10:00a [facility] Huber Riley M.D. 38215 B36.9 Medicine - [address] B00.9 L23.9 E87.1 Office Visit 01/02/2016 8:20a [facility] Huber Riley M.D. 81296 I10 - [place] E87.1 K11.6 Office Visit 11/21/2015 8:20a [facility] Huber Riley, 88066 F31.30 Eva Eliezer Hernandez I10 B37.0 Office Visit 11/04/2015 3:15p [facility] Michael Ann 02072 J96.01 Hospitalihsan Vega D.O. R57.1 T50.902A R40.243 Office Visit 11/03/2015 3:14p [facility], Michael Ann 49177 J96.01 Hospitalihsan Vega D.O. R57.1 T50.902A R40.243 Office Visit 11/02/2015 3:13p [facility] Ann 87119 T50.902A Assoc, Hospitalists Mario Vega J96.01 R57.1 R40.243 Office Visit 11/01/2015 3:08p [facility] Michael Ann 92713 T39.1x2A Assoc, Hospitalists Mario Vega R57.1 J96.01 R40.20 Office Visit 10/28/2015 11:06a [facility] Haile Flores M.D. 50196 T50.901D Assoc,pc Hospitalists F10.129 F31.30 Office Visit 10/27/2015 11:05a Jayy Flores M.D. 44024 T50.901D Assoc, Hospitalists F10.129 F31.30 Office Visit 10/26/2015 11:05a Jayy Flores M.D. 76019 T50.901A Assoc, Hospitalists F10.129 F31.30 Office Visit 09/26/2015 9:40a [facility] Huber Riley, 86518 E78.5 - Eliezer Hernandez E87.1 Office Visit 09/05/2015 10:30a [facility] NICOLAS Mason 26245SZC R55 E78.5 Office Visit 07/18/2015 2:00p [facility] Roel Collier M.D. 32613 R55 R53.82 F41.9 Office Visit 07/10/2015 10:20a [facility] Huber Riley M.D. 38280 R55 - [address] R53.82 E87.1 Office Visit 06/22/2015 9:40a [facility] Medicine Huber Riley 08338 E78.5 - Eliezer Hernandez E87.1 F41.9 Office Visit 03/09/2015 9:40a [facility] Huber Riley 71230 276.1 - Eliezer Hernandez 272.4 Office Visit 11/08/2014 2:40p [facility] Huber Riley M.D. 77895 276.1 Medicine - [address] 802.0 Office Visit 10/11/2014 2:20p [facility] Roel Collier, 96502 794.31 Mary 433.10 272.4 296.20 Office Visit 10/09/2014 2:00p [facility] Huber Riley, 65139 V72.84 Medicine - Eliezer Hernandez 296.20 272.4 276.1 V03.82 794.31 366.9 Office Visit 09/08/2014 10:00a [facility] Huber Riley, 69674 682.8 - Eliezer Hernandez 276.1 Office Visit 08/25/2014 10:20a [facility] Huber Riley 63307 296.20 Medicine - Eliezer Hernandez 272.4 682.8 054.79 366.50 V70.0 944.05 Office Visit 08/09/2014 2:29p [facility] Assoc, Ariana Jerry, 91100 780.39 Hospitalists MJazmine 780.2 272.4 311 Office Visit 08/08/2014 2:28p [facility] Ariana Jerry, 49710 780.39 Hospitalists M.D. 780.2 272.4 311 Office Visit 08/07/2014 2:28p [facility] Ariana Jerry, 49290 780.39 Hospitalists M.D. 780.2 272.4 311 Office Visit 08/06/2014 2:28p [facility] Ariana Jerry, 49868 780.39 Hospitalists M.D. 780.2 272.4 311 Office Visit 08/06/2014 11:32a [facility] Diann Brown, 59101 780.39 Services Of Corporate Development Officer M.D. Office Visit 08/05/2014 2:27p [facility] Ariana Jerry, 51940 780.39 Hospitalists M.D. 780.2 272.4 311 Office Visit 08/05/2014 11:31a [facility] Diann Brown, 89650 780.39 Services Of Corporate Development Officer M.D. Office Visit 08/04/2014 2:27p [facility] Kulwant Jimenes, 01550 780.39 Hospitalists M.D. 780.2 272.4 311 Office Visit 08/04/2014 11:29a [facility] Otto Starkey, 83760 780.39 Services Of Corporate Development Officer M.D. Office Visit 08/03/2014 2:26p [facility],pc [place], [phone] Hospitalists N.PYun 780.2 272.4 [phone] Office Visit 08/03/2014 11:27a [facility] Cass Butler, [address] [phone] Services Of Corporate Development Officer M.D. Office Visit 07/31/2014 6:08p [facility] Des Flores M.D. [address]13 977.9 Assoc, Hospitalists 296.20 E958.9 Office Visit 07/30/2014 6:07p [facility] Des Flores M.D. [id number] [phone] Hospitalists 977.9 296.20 E958.9 Plan of Care Future Appointment(s):07/01/2018 9:30 am - Marine Benavides MD at [facility] - [address]04/04/2019 8:30 am - Mason Smith MD at [facility] Hsbdrhncjic42/ 12/2018 8:20 am - Huber Riley M.D. at [facility] - [id number] /25/2018 - Marine Benavides MDK57.32 Dvtrcli of lg int w/o perforation or abscess w/ o bleedingNew Medication:Cipro 500 mgMetronidazole 500 mgFollow up:1 weekJ06.9 Acute upper respiratory infection, [id number] Essential (primary) hypertensionComments:Continue with your current medication. Repeat BP R arm supine: 130/78
--- NOTE | 2018-06-30 09:11 | RAD ---
Indication: Syncope. Single frontal view of the chest performed at 0855 hours was reviewed. Comparison is made with previous exam dated November 01, 2015. No mediastinal shift is noted. Heart is of normal size and configuration. Lung fuentes appear clear. IMPRESSION: NO ACTIVE CARDIOPULMONARY DISEASE IS NOTED.
[2018-06-30 09:20] LABS: ABS Basophils 0 10^3/ul (0-0.2); ABS Eosinophils 0 10^3/ul (0-0.6); ABS Lymphocytes 0.5 10^3/ul (1.0-4.8); ABS Monocytes 0.7 10^3/ul (0-0.8); ABS Neutrophils 8.6 10^3/ul (1.5-7.7); ABS Nucleated RBC 0 10^3/ul; Eosinophil % 0.1 % (0-6); Hematocrit 36 % (35-47); Hemoglobin 12.5 g/dl (12.0-16.0); Mean Corpuscular HGB Conc 35 g/dl (31-36); Mean Corpuscular Hemoglobin 33 pg (27-31); Mean Corpuscular Volume 94 fL (80-97); Mean Platelet Volume 6.6 um3 (7.4-10.4); Nucleated Red Blood Cells % 0; Platelet Count 259 10^3/ul (150-450); Red Blood Count 3.85 10^6/ul (4.00-5.40); Red Cell Distribution Width 14 % (10.5-15); White Blood Count 9.9 10^3/ul (3.5-10.8)
[2018-06-30 09:39] LABS: EGFR Non-African American 111.9 (>60)
[2018-06-30 10:54] LABS: Urine Appearance Cloudy; Urine Blood 1+ (Negative); Urine Color Yellow; Urine Ketones Negative (Negative); Urine Protein Negative (Negative); Urine Red Blood Cell 2+(6-10/hpf) (Absent); Urine Urobilinogen Negative (Negative); Urine White Blood Cell Trace(0-5/hpf) (Absent)
--- NOTE | 2018-06-30 12:10 | PN ---
Hospitalist Progress Note HOSPITALIST ADDENDUM Case reviewed and d/w Kymberly Dinero SOUP MIXER. Mrs Vaca is a 67yo F with PMH of HLD, depression, bipolar, hyponatremia, who presented to ED after a syncopal episode. Had a syncopal episode in 2016 with unremarkable cardiac w/u, felt to be secondary to hyponatremia/dehydration. Saw PCP last week and was started on Cipro and Flagyl for probable diverticulitis and has had diarrhea since. Labs and EKG reviewed. Orthostatics were positive in ED. Impression is her syncopal episode was secondary to dehydration associated with diarrhea. Will admit for IVF, will check C diff. Agree with current management.
[2018-06-30] MEDS ORDERED: Al Hydrox/Mg Hydrox/Simet LIQ* 30 ML UDC PO PRN (12:12)
[2018-06-30] MEDS ORDERED: Acetaminophen TAB* 325 MG PO PRN (12:12)
[2018-06-30] MEDS ORDERED: Ondansetron INJ* 2 MG/ML VIAL IV PRN (12:12)
[2018-06-30] MEDS ORDERED: Divalproex ER TAB(*) 250 MG PO SCH ×2 (13:00→21:00)
[2018-06-30] MEDS ORDERED: Enoxaparin(*) 40 MG/0.4 ML SYR SUBCUT SCH (13:00)
[2018-06-30] MEDS: FLUoxetine CAP* 20 MG PO SCH (13:53)
[2018-06-30] MEDS: Famotidine TAB* 20 MG PO SCH ×2 (13:53→20:31)
[2018-06-30] MEDS: Aspirin EC TAB* 81 MG TAB.EC PO SCH (13:53)
[2018-06-30] MEDS: NS 0.9% 1000 ML* 1,000 ML IV SCH ×2 (13:53→21:13)
[2018-06-30] MEDS: metroNIDAZOLE * 500 MG TABLET PO SCH ×2 (13:54→20:31)
--- NOTE | 2018-06-30 15:17 | HP ---
CC: Dr. Huber Riley; Dr. Ryan.* HISTORY AND PHYSICAL: DATE OF ADMISSION: 06/30/18 PRIMARY CARE PROVIDER: Dr. Huber Riley. PSYCHIATRIST: Dr. Ryan. ATTENDING PHYSICIAN: Dr. Ariana Erickson * (dictated by Kymberly Dinero NP) CHIEF COMPLAINT: Syncope. HISTORY OF PRESENT ILLNESS: Ms. Vaca is a 67-year-old female with past medical history of hyperlipidemia, depression, anxiety, bipolar, and hyponatremia who presents to the emergency room today after a syncopal episode. The patient reports that around 7:30 this morning, she was in her kitchen making breakfast, she suddenly became hot and sweaty. She took her robe off and the next thing she remembers is waking up on the floor. When she woke, she was slightly confused. She felt dizzy and weak. Her was in the next room and heard her fall. He immediately went into the kitchen and found her on the floor. He reports that she lost consciousness for less than 1 minute and she was quite diaphoretic. She states she tried to sit up, though became quite lightheaded and laid back down. Her called EMS. Upon their arrival, the patient reports that they were unable to get a blood pressure at first, though she believes the first blood pressure they took was in the 80s systolically. The patient saw her PCP on 06/24/18 with upper respiratory complaints and was diagnosed at that time with diverticulitis. She was started on Cipro and Flagyl. She has been trying to increase her fluid intake while taking these antibiotics. She had some significant diarrhea since starting the antibiotics and reports 2 episodes of diarrhea earlier today. Her last dose of antibiotics will be tomorrow. The patient reports a similar syncopal episode approximately 2 years ago, for which she was not hospitalized, though she did see Cardiology in consultation. According to the patient and cardiology notes, she saw Dr. Collier, had an echo, a stress test and wore a Holter monitor and there were no cardiac abnormalities noted at that point. The patient reports that Cardiology told her that her syncopal episode was likely due to hypovolemia from a fluid restriction for her hyponatremia. The patient does have a history of hyponatremia and for that reason typically tries to somewhat limit her water intake. On my exam, the patient reports feeling achy and weak, though is no longer lightheaded or dizzy. She reports that she was able to walk to the bathroom with a nurse and was not dizzy at that point. While in the emergency room, the patient had labs remarkable for a sodium of 127. She had orthostatic vitals, which were indicative of orthostasis. The hospitalist team was asked to evaluate for admission. PAST MEDICAL HISTORY: 1. Hyperlipidemia. 2. Depression. 3. Anxiety. 4. Bipolar. 5. Hyponatremia. 6. IBS. 7. Documented history of suicide attempts, although the patient denies this. 8. Melanoma in the distant past, which was surgically removed. PAST SURGICAL HISTORY: 1. Hysterectomy in 1984. 2. Left knee arthroplasty x2. 3. Bilateral oophorectomy in 2012. HOME MEDICATIONS: 1. Famotidine 20 mg p.o. b.i.d. 2. Ciprofloxacin 500 mg p.o. b.i.d. 3. Metronidazole 500 mg p.o. t.i.d. 4. Valacyclovir 500 mg p.o. b.i.d. p.r.n. 5. Pantoprazole 40 mg p.o. daily. 6. Simvastatin 20 mg p.o. at bedtime. 7. Fluoxetine 20 mg p.o. daily. 8. Depakote 500 mg p.o. at bedtime. 9. Lysine 1000 mg p.o. daily. 10. Centrum Silver multivitamin 1 tab p.o. daily. 11. Vitamin D3 of 2000 units p.o. daily. 12. Aspirin 81 mg p.o. daily. ALLERGIES: DIAZEPAM. FAMILY HISTORY: The patient's mother in her 30s due to suicide. The patient's father had a history significant for CAD with stents. He at 88 due to a CVA. She reports a brother with prostate cancer and a sister with endometrial cancer. SOCIAL HISTORY: The patient denies tobacco or recreational drug use. She reports no alcohol use for the last 3 years. She is a retired community services officer , lives at home with her . The patient's , Kulwant, will be her surrogate decision maker in the event she is unable to make her own decisions. REVIEW OF SYSTEMS: An 11-point review of systems was performed and all the pertinent positive and negative findings are in the HPI, all other systems are negative. PHYSICAL EXAMINATION GENERAL: Ms. Arnold is a well-developed, well-nourished white woman sitting in bed, in no acute distress. She appears her stated age. VITAL SIGNS: Temp 97.4, heart rate 80, respiratory rate 20, oxygen saturation 98 % on room air, blood pressure 118/79. HEENT: Head is atraumatic and normocephalic. Visual fuentes are grossly intact. Pupils are equal, round, and reactive to light and accommodation. Extraocular movements intact. Mucous membranes are moist and without lesions. NECK: Full range of motion. Thyroid not palpable. Trachea midline, no lymphadenopathy. RESPIRATORY: Symmetrical chest expansion. No chest wall deformities. Lungs clear to auscultation throughout. No rhonchi, wheezes, or rubs. CARDIOVASCULAR: Regular, rate, and rhythm. S1 and S2 present. No murmurs, rubs, or gallops. No JVD. No carotid bruits. ABDOMEN: Tenderness to palpation of the left lower quadrant, otherwise nontender throughout. Nondistended. Bowel sounds are normoactive throughout. No bruits appreciated. No hepatosplenomegaly. EXTREMITIES: Skin warm and smooth bilaterally. No edema. No clubbing or cyanosis. Pedal pulses 2+ bilaterally. MUSCULOSKELETAL: Full range of motion, no pain or deformities. NEUROLOGIC: Awake, alert, and oriented x4. Cranial nerves II through XII are grossly intact. Moves all extremities. Motor strength is 5/5 in upper extremities bilaterally. SKIN: Grossly intact without lesions. DIAGNOSTIC STUDIES AND LABORATORY DATA: WBC 9.9, RBC 3.85, hemoglobin 12.5, hematocrit 36, platelets 259. Sodium 127, potassium 4.8, chloride 95, carbon dioxide 25, BUN 8, creatinine 0.54, glucose 103, magnesium 2.0, troponin 0.00, TSH 2.08. Urinalysis: Positive for blood, calcium oxalate crystals, and granular casts; otherwise unremarkable. EKG shows normal sinus rhythm at a rate of 76. This was personally reviewed. Chest x- ray reads as no active cardiopulmonary disease. This was personally reviewed. ASSESSMENT AND PLAN: Ms. Vaca is a 67-year-old female with past medical history of hyperlipidemia, depression, anxiety, bipolar and hyponatremia who presents to the emergency room today after a syncopal episode and was found to be orthostatic. The patient will be admitted to observation for: 1. Syncope. This syncopal episode is orthostatic secondary to hypovolemia from recent diarrhea. We will check a C. diff. The patient blood pressure was 128/75 laying, standing was 99/73. We will rehydrate her with normal saline. I will recheck orthostatic vital signs in the morning after fluid resuscitation. The patient's last echo was in 2014, which showed an EF of 55% to 60% and possible diastolic dysfunction. We will recheck a transthoracic echocardiogram. 2. Hyponatremia. The patient's sodium in the emergency room is 127. According to previous labs and per the patient, her baseline is in the mid tp high 20s. We will check a urine sodium, urine osmolality, and a serum osmolality in an attempt to determine the true cause of this hyponatremia. 3. Hyperlipidemia. Continue statin. The patient takes simvastatin at home. That will be substituted with atorvastatin here in the hospital. 4. Depression, anxiety, and bipolar. Continue Depakote and fluoxetine. 5. Diverticulitis. We will complete her course of Cipro and Flagyl. Her last day of antibiotic therapy should be tomorrow. 6. Fluids, electrolytes, and nutrition. Fluids as noted above. Sodium as noted above. I have ordered a heart healthy diet. 7. Code status. The patient will be a full code. 8. DVT prophylaxis. According to the DVT risk assessment, the patient scores a 3, making her high risk. I have placed her on Lovenox. TIME SPENT: Approximately 60 minutes were spent on this admission greater than half of the time spent with the patient and her obtaining my history, performing my physical exam, and reviewing the plan of care. This case was interviewed with my attending, Dr. Erickson who is in agreement with the plan of care. KYMBERLY DINERO, VOLUNTEER SERVICES SUPERVISOR [id number]/[facility] #: [id number] EFREN
--- NOTE | 2018-06-30 17:24 | ECHO ---
Patient: CAPO VELA [facility] Rec#: [id number] : 1950 Date: 06/30/2018 Age: 67y Height: 160 cm / 63.0 in Weight: 65.8 kg / 145.0 lbs Sex: F BSA: 1.7 Room#: [facility] Admit Date#: 06/30/2018 Type: Inpatient Referring: Kymberly Dinero Reading: Pricila yL MD [employer]able [employer] Technician: Cyndi Mac RN RDCS CC: Osvaldo WORKMAN,[facility] Transthoracic Echocardiogram Indication: Syncope BP: 118/79 HR: 85 Rhythm: NSR Findings History: HLD, hypotension, carotid artery stenosis Technical Comments: The study quality is fair. Completed at 1545. Left Ventricle: The left ventricular chamber size is normal. Septal wall hypertrophy is observed.at 1.2 cm. Global left ventricular wall motion and contractility are within normal limits. There is normal left ventricular systolic function. The estimated ejection fraction is 55-60%. There is no consistent Doppler evidence of clinically significant diastolic dysfunction. Left Atrium: The left atrial chamber size is normal. Right Ventricle: The right ventricular chamber size and systolic function are within normal limits. Right Atrium: The right atrial cavity size is normal. Aortic Valve: The aortic valve is trileaflet. The aortic valve leaflets are mildly thickened. There is aortic annular calcification. There is no evidence of aortic regurgitation. There is no evidence of aortic stenosis. Mitral Valve: The mitral valve leaflets are mildly thickened. There is a trace of mitral regurgitation. There is no evidence of mitral stenosis. Tricuspid Valve: The tricuspid valve leaflets are normal. There is trace tricuspid regurgitation. Unable to estimate the right ventricular systolic pressure. There is no tricuspid stenosis. Pulmonic Valve: The pulmonic valve appears normal. There is trace to mild pulmonic regurgitation. There is no pulmonic stenosis. Pericardium: There is no significant pericardial effusion. Aorta: There is no dilatation of the ascending aorta. There is no dilatation of the aortic arch. There is no dilation of the aortic root. Pulmonary Artery: The main pulmonary artery appears normal. Venous: The inferior vena cava appears normal in size. There is an approximate 50% respiratory change in the inferior vena cava dimension. Summary: There are changes noted when compared to the previous study done on 10/12/2014, MR is new. Conclusions The left ventricular chamber size is normal. Septal wall hypertrophy is observed.at 1.2 cm. The estimated ejection fraction is 55-60%. There is a trace of mitral regurgitation. There is trace tricuspid regurgitation. Unable to estimate the right ventricular systolic pressure. Measurements Name Value Normal Range RVDdMajor (2D) 2.5 cm (2.2 - 4.4) RAd ISD 4CH 4.3 cm (3.4 - 4.9) RA (A4C)W 3.6 cm (2.9 - 4.6) IVSd (2D) 1.2 cm (0.6 - 1) LVPWd (2D) 1 cm (0.6 - 1) LVIDd (2D) 3.7 cm (3.6 - 5.4) LVIDs (2D) 2.3 cm - LV FS (2D) 38 % (25 - 45) Aortic Annulus 2 cm (1.4 - 2.6) Ao root diameter (2D) 3.1 cm (2.1 - 3.5) Ascending Ao 3 cm (2.1 - 3.4) Aortic arch 2.5 cm (1.8 - 3.4) LA dimension (AP) 2D 3.5 cm (2.3 - 3.8) LAd ISD 4CH 4.1 cm (2.9 - 5.3) LA ISD 4CH W 3.4 cm (2.5 - 4.5) Name Value Normal Range LA ESV SP 4CH (A/L) 37 ml - LA ESV SP 2CH (A/L) 42 ml - LA ESV BP (A/L) 39 ml - LA ESV BP (A/L) index 23.3 ml/m2 - LA ESV SP 4CH (MOD) 35 ml - LA ESV SP 2CH (MOD) 40 ml - Name Value Normal Range MV E-wave Vmax 0.71 m/sec - MV deceleration time 210 msec - MV A-wave Vmax 0.89 m/sec - MV E:A ratio 0.8 ratio - LV septal e' Vmax 0.08 m/sec - LV lateral e' Vmax 0.1 m/sec - LV E:e' septal ratio 8.9 ratio - LV E:e' lateral ratio 7.1 ratio - Name Value Normal Range AV Vmax 1.5 m/sec - AV VTI 26.4 cm - AV peak gradient 8.4 mmHg - AV mean gradient 5.6 mmHg - LVOT Vmax 0.94 m/sec - LVOT VTI 21.6 cm - LVOT peak gradient 3.5 mmHg - LVOT mean gradient 2 mmHg - RAEGAN Vmax 0.74 m/sec - Name Value Normal Range IVC diameter 1.9 cm - Name Value Normal Range PV Vmax 0.79 m/sec -
[2018-06-30] MEDS: Ciprofloxacin TAB* 500 MG PO SCH (20:31)
[2018-06-30] MEDS ORDERED: Atorvastatin* 10 MG TAB PO SCH (21:00)
[2018-07-01] MEDS: NS 0.9% 1000 ML* 1,000 ML IV SCH (05:16)
[2018-07-01 07:19] LABS: EGFR Non-African American 149.6 (>60)
[2018-07-01] MEDS: FLUoxetine CAP* 20 MG PO SCH (08:03)
[2018-07-01] MEDS: Famotidine TAB* 20 MG PO SCH (08:03)
[2018-07-01] MEDS: metroNIDAZOLE * 500 MG TABLET PO SCH (08:03)
[2018-07-01] MEDS: Ciprofloxacin TAB* 500 MG PO SCH (08:03)
[2018-07-01] MEDS: Aspirin EC TAB* 81 MG TAB.EC PO SCH (08:03)
[2018-07-01] MEDS ORDERED: Omeprazole CAP* 20 MG PO SCH (09:00)
[2018-07-01 13:12] VITALS: BP 111/56
--- NOTE | 2018-07-02 11:42 | DS ---
CC: Huber Riley MD * DISCHARGE SUMMARY: DATE OF ADMISSION: 06/30/18 DATE OF DISCHARGE: 07/01/18 PRIMARY CARE PROVIDER: Huber Riley MD. MY ATTENDING PHYSICIAN WHILE IN THE HOSPITAL: Brandon Swann MD.* (DICTATED BY NICOLAS HANEY) PRIMARY DISCHARGE DIAGNOSES: 1. Neurocardiogenic syncope. 2. Antibiotic-associated diarrhea. 3. Dehydration. 4. Hyponatremia. SECONDARY DISCHARGE DIAGNOSES: 1. Hyperlipidemia. 2. Depression. 3. Anxiety. 4. Bipolar disorder. 5. Irritable bowel syndrome. STUDIES DONE WHILE IN THE HOSPITAL: Chest x-ray from 06/30/18, read as no active cardiopulmonary disease. Electrocardiogram from 06/30/18, read as normal sinus rhythm, no ST-segment abnormalities, QTc of 459, rate of 76, normal axis, no blocks or hypertrophy except for intraventricular conduction delay, significantly change from previous exam, which showed ST-segment depressions. Transthoracic echocardiogram from 06/30/18, read as left ventricular chamber size is normal, septal wall hypertrophy observed at 1.2 cm, estimated ejection fraction 55% to 60%, there is trace mitral regurgitation and trace tricuspid regurgitation, unable to estimate right ventricular systolic pressure. Pulmonary artery appears normal in size, greater than 50% respiratory change in the inferior cava dimension. MEDICATIONS AT DISCHARGE: 1. Simvastatin 20 mg p.o. daily. 2. Fluoxetine 20 mg p.o. daily. 3. Depakote ER 500 mg p.o. at bedtime. 4. Lysine 1000 mg p.o. daily. 5. Centrum silver one tab p.o. daily. 6. Vitamin D3 2000 units p.o. daily. 7. Aspirin 81 mg p.o. daily. 8. Metronidazole 500 mg p.o. t.i.d. 9. Valacyclovir 500 mg p.o. b.i.d. as needed. 10. Pantoprazole 40 mg p.o. daily. 11. Famotidine 20 mg p.o. b.i.d. 12. Ciprofloxacin 500 mg p.o. b.i.d. 13. Tylenol 650 mg p.o. q.4 hours as needed. 14. Imodium 2 mg p.o. q.4 hours as needed. New medications at discharge: 1. Tylenol. 2. Imodium. HOSPITAL COURSE: This is a brief summary of the patient's presentation. For more details, please see the history and physical from Kymberly Dinero NP on 06/30. In brief, the patient is a 67-year-old female with past medical history significant for the above, who has a previous history of syncope in the setting of dehydration with negative cardiac workup. When she was fluid restricted for her hyponatremia, the patient at home felt hot, sweaty, and dizzy while making breakfast as well as weak. She passed out, did not hit her head, she woke up and persistently felt dizzy, EMS was not initially able to get a blood pressure. Patient had no arrhythmia noted at that time. The patient was recently treated for diverticulitis with Cipro and Flagyl. The patient came into the emergency department. The patient was given fluids, the patient was positively orthostatic with greater than 25-point drop in her systolic blood pressure upon standing with a feeling of presyncope. The patient was given approximately 2 L of fluid overnight. Patient's loose stools decreased. The patient had an echocardiogram read as above, which showed minimal change from previous exam. The patient had no arrhythmia on telemetry. The patient's repeat vital signs were not orthostatic. The patient felt like she had much more energy. The patient's last date for antibiotics was scheduled to be 07/01/18. The patient was stable and amenable for discharge on 07/01/18. PHYSICAL EXAM ON THE DAY OF DISCHARGE: General: The patient is a 67-year-old female who appears stated age and sitting comfortably in the bed, in no acute distress. Vital Signs: At the time of discharge, temperature 98.3, pulse rate 84, respiratory rate 18, oxygen saturation 99% on room air, blood pressure 127/ 71. HEENT: Head: Normocephalic, atraumatic. Sclerae anicteric. No conjunctival injection. Nasal mucosa is moist. Oral mucosa is moist. No pharyngeal erythema, discharge or exudate. Neck: Supple, nontender. No lymphadenopathy. No carotid bruits auscultated. No JVD. Cardiac: Regular rate and rhythm. No clicks, murmurs, gallops or rubs. Pulses are 2+ in the bilateral dorsalis pedis, posterior tibialis and radial areas. Respiratory: Clear to auscultation bilaterally. No wheezes, rales or rhonchi. Good air exchange bilaterally. Abdomen: Soft, nontender, nondistended. Bowel sounds present. Normoactive in all four quadrants. No hepatosplenomegaly. No abdominal bruits auscultated. No hepatojugular reflux. Genitourinary: No suprapubic or CVA tenderness. Skin: Clean, dry, intact. No rash. Psychiatric : Pleasant and cooperative. LABORATORY DATA ON DAY OF DISCHARGE: Sodium 132, potassium 3.9, chloride 104, carbon dioxide 23, anion gap 5, BUN 4, creatinine 0.42, glucose 93, calcium 8.3. Other studies of note during the hospitalization, urine osmolality 2.07, urine creatinine 25.57, sodium 48, magnesium 2.0, serum osmolality 267. Sodium on admission was 127, hemoglobin 12.5 on admission, platelet count 259. DISCHARGE PLAN: The patient will be discharged to home. The patient has very likely had neurocardiogenic syncope from volume depletion related to her diarrhea. The patient was prescribed Imodium as needed for loose bowel movements , although patient is finishing her antibiotics today and her loose bowel movements are decreasing. The patient should follow up with her primary care provider within one week for general medical management and repeat sodium level. The patient has been instructed to try to maintain a moderate amount of fluid intake avoiding dehydration as well as avoiding exacerbating her hyponatremia. 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 This could be related to patient's psychiatric medications. A possibility of adjusting these should be discussed with her primary care doctor. The patient will take her final dose of Flagyl and ciprofloxacin tonight. The patient should return to the hospital for alarming symptoms such as repeat syncope, chest pain, shortness of breath. The patient should have a heart healthy diet without caffeine and engage in activity as tolerated. TIME SPENT: Approximately 45 minutes were spent on the discharge of this patient, 25 of which was spent [id number] with the patient obtaining history and physical and discussing treatment plan. NICOLAS HANEY [id number]/[facility] #: [id number] EFREN
== END 2018-07-01 13:15 | disposition home or self-care (01) ==
LOC: ED 08:19 → MEDTELE 11:18
PROVIDERS: ADMIT Internal Medicine; ATTEND Internal Medicine
DX: R55 Syncope and collapse (principal); R19.7 Diarrhea, unspecified; E86.0 Dehydration; E87.1 Hypo-osmolality and hyponatremia; E78.5 Hyperlipidemia, unspecified; F32.9 Major depressive disorder, single episode, unspecified; F41.9 Anxiety disorder, unspecified; F31.9 Bipolar disorder, unspecified; K58.9 Irritable bowel syndrome, unspecified; Z79.82 Long term (current) use of aspirin; Z85.820 Personal history of malignant melanoma of skin
CPT/HCPCS: 36415; 71045; 80048; 80053; 81003; 81015; 82570; 83735; 83930; 83935; 84300; 84443; 84484; 85025; 87086; 87493; 93005; 93306; 96361; 96372; 96374; 99284; A9270-GY; G0378; J1650

== ENCOUNTER 2024-04-02 12:16 | Inpatient (IN) ==
[2024-04-02 13:02] LABS: ABS Basophils 0.1 10^3/uL (0.0-0.1); ABS Lymphocytes 2.1 10^3/uL (1.0-4.8); ABS Monocytes 1.1 10^3/uL (0.0-0.9); ABS Neutrophils 9.1 10^3/uL (1.5-7.6); ABS Nucleated RBC 0.01 10^3/ul; Eosinophil % 0.2 %; Hematocrit 37.1 % (35-45); Hemoglobin 12.6 g/dL (11.5-14.3); Lymphocyte % 17.1 %; Mean Corpuscular Hemoglobin 31.1 pg (27-33); Mean Corpuscular Hgb Conc 33.8 g/dL (31-36); Mean Corpuscular Volume 91.9 fL (80-97); Mean Platelet Volume 6.2 fL (7.5-11.2); Nucleated Red Blood Cells % 0.1 %/100WBC (0.0-0.8); Platelet Count 315 10^3/uL (150-450); Red Blood Count 4.04 10^6/uL (3.63-4.92); Red Cell Distribution Width 13.8 % (12-17); White Blood Count 12.5 10^3/uL (3.8-11.8)
[2024-04-02 13:21] LABS: Albumin 4.3 g/dL (3.2-5.2); Calcium 9.3 mg/dL (8.6-10.3); Creatinine, Serum 0.58 mg/dL (0.51-0.95); Globulin 2.1 g/dL (2-4); Potassium 3.5 mmol/L (3.5-5.0); Total Bilirubin 0.4 mg/dL (0.2-1.0); Total Protein 6.4 g/dL (6.4-8.9); eGFR CKD-EPI 94.3 (>60)
[2024-04-02] MEDS: NS 0.9% 1000 ml BAG 1,000 ML IV ONE ×2 (13:23→15:07)
[2024-04-03 01:07] LABS: Urine Appearance Clear; Urine Bilirubin Negative (Negative); Urine Blood Negative (Negative); Urine Color Light-Yellow; Urine Glucose Negative (Negative); Urine Ketones Negative (Negative); Urine Nitrite Negative (Negative); Urine Protein Negative (Negative); Urine Specific Gravity 1.005 (1.002-1.030); Urine Urobilinogen Negative (Negative)
[2024-04-03] MEDS ORDERED: Ondansetron ODT 4 mg TAB 4 MG TAB PO PRN (03:20)
[2024-04-03 06:06] LABS: ABS Basophils 0.1 10^3/uL (0.0-0.1); ABS Eosinophils 0.1 10^3/uL (0.0-0.5); ABS Lymphocytes 2.3 10^3/uL (1.0-4.8); ABS Neutrophils 7.9 10^3/uL (1.5-7.6); ABS Nucleated RBC 0.01 10^3/ul; Eosinophil % 0.6 %; Hematocrit 37.6 % (35-45); Hemoglobin 12.5 g/dL (11.5-14.3); Mean Corpuscular Hemoglobin 30.8 pg (27-33); Mean Corpuscular Hgb Conc 33.2 g/dL (31-36); Mean Corpuscular Volume 92.9 fL (80-97); Mean Platelet Volume 6.3 fL (7.5-11.2); Nucleated Red Blood Cells % 0.1 %/100WBC (0.0-0.8); Platelet Count 313 10^3/uL (150-450); Red Blood Count 4.05 10^6/uL (3.63-4.92); Red Cell Distribution Width 14.2 % (12-17); White Blood Count 11.5 10^3/uL (3.8-11.8)
[2024-04-03 06:59] LABS: Calcium 9.1 mg/dL (8.6-10.3); Creatinine, Serum 0.48 mg/dL (0.51-0.95); Potassium 3.8 mmol/L (3.5-5.0); eGFR CKD-EPI 98.7 (>60)
[2024-04-03] MEDS: Enoxaparin 40 MG/0.4 ML SYR SUBCUT SCH (20:59)
[2024-04-04 06:16] LABS: Calcium 9.1 mg/dL (8.6-10.3); Creatinine, Serum 0.41 mg/dL (0.51-0.95); Potassium 3.7 mmol/L (3.5-5.0); eGFR CKD-EPI 102.5 (>60)
[2024-04-04 06:48] LABS: TSH Ultra Thyroid Stim Horm 1.85 mcIU/mL (0.34-5.60)
[2024-04-04] MEDS ORDERED: Aspirin EC 81 mg TAB.EC (enteric coated) PO SCH (09:00)
[2024-04-04] MEDS: Multivitamins/Minerals TAB PO SCH (09:26)
[2024-04-04] MEDS: Cholecalciferol (VIT D3) 1,000 unit TAB PO SCH (09:26)
[2024-04-04 21:09] LABS: Calcium 9.3 mg/dL (8.6-10.3); Creatinine, Serum 0.91 mg/dL (0.51-0.95); Potassium 3.3 mmol/L (3.5-5.0); eGFR CKD-EPI 65.8 (>60)
[2024-04-04] MEDS: NS 0.9% 1000 ml BAG 1,000 ML IV ONE (22:50)
[2024-04-05 14:27] LABS: Anion Gap 9 mmol/L (2-16); Blood Urea Nitrogen 19 mg/dL (6-24); CO2 Carbon Dioxide 22 mmol/L (22-32); Calcium 9.4 mg/dL (8.6-10.3); Chloride 95 mmol/L (101-111); Creatinine, Serum 0.75 mg/dL (0.51-0.95); Glucose 149 mg/dL (70-100); Sodium 126 mmol/L (135-145)
[2024-04-06 00:46] LABS: Urine Appearance Clear; Urine Bilirubin Negative (Negative); Urine Blood 1+ (Negative); Urine Color Light-Yellow; Urine Glucose 2+ (>=150 mg/dL) (Negative); Urine Ketones Negative (Negative); Urine Nitrite Negative (Negative); Urine Protein Negative (Negative); Urine Specific Gravity 1.012 (1.002-1.030); Urine Urobilinogen Negative (Negative); Urine pH 6.5 (5.0-8.0)
[2024-04-06 01:01] LABS: Urine Osmo 345 mOsm/kg (150-1150)
[2024-04-06 01:06] LABS: Urine Bacteria Absent /HPF (Absent); Urine Red Blood Cell Trace(0-2/hpf) /HPF (0-Trace); Urine Squamous Epithelial Cell Present /HPF (Absent); Urine White Blood Cell 1+(6-10/hpf) /HPF (0-Trace)
[2024-04-06 09:34] LABS: Calcium 8.7 mg/dL (8.6-10.3); Creatinine, Serum 0.59 mg/dL (0.51-0.95); Potassium 3.9 mmol/L (3.5-5.0); eGFR CKD-EPI 93.9 (>60)
[2024-04-06 13:07] LABS: Osmolality Serum 283 mOsm/kg (275-295)
[2024-04-07 07:09] LABS: Calcium 8.9 mg/dL (8.6-10.3); Creatinine, Serum 0.54 mg/dL (0.51-0.95); Potassium 4.1 mmol/L (3.5-5.0)
[2024-04-07] MEDS ORDERED: Senna TAB 8.6 mg TAB PO PRN (22:06)
[2024-04-07] MEDS ORDERED: Magnesium Hydroxide LIQ 30 ML UDC PO PRN (22:06)
[2024-04-08] MEDS: Polyethylene Glycol 3350 17 GM PACKET PO SCH (10:51)
[2024-04-09 08:20] LABS: ABS Eosinophils 0.3 10^3/uL (0.0-0.5); ABS Monocytes 0.8 10^3/uL (0.0-0.9); ABS Neutrophils 5.4 10^3/uL (1.5-7.6); Eosinophil % 3.8 %; Hematocrit 31.9 % (35-45); Hemoglobin 10.9 g/dL (11.5-14.3); Lymphocyte % 22.8 %; Mean Corpuscular Hemoglobin 31.9 pg (27-33); Mean Corpuscular Hgb Conc 34.1 g/dL (31-36); Mean Corpuscular Volume 93.6 fL (80-97); Mean Platelet Volume 6.7 fL (7.5-11.2); Platelet Count 249 10^3/uL (150-450); Red Blood Count 3.41 10^6/uL (3.63-4.92); Red Cell Distribution Width 14.3 % (12-17); White Blood Count 8.6 10^3/uL (3.8-11.8)
[2024-04-09 08:41] LABS: Calcium 8.9 mg/dL (8.6-10.3); Creatinine, Serum 0.46 mg/dL (0.51-0.95); Magnesium 1.8 mg/dL (1.9-2.7); Potassium 4.4 mmol/L (3.5-5.0); eGFR CKD-EPI 99.7 (>60)
[2024-04-11 10:11] LABS: ABS Eosinophils 0.2 10^3/uL (0.0-0.5); ABS Lymphocytes 1.6 10^3/uL (1.0-4.8); ABS Monocytes 0.9 10^3/uL (0.0-0.9); ABS Neutrophils 6.4 10^3/uL (1.5-7.6); ABS Nucleated RBC 0.01 10^3/ul; Eosinophil % 1.7 %; Hematocrit 32.8 % (35-45); Hemoglobin 11.1 g/dL (11.5-14.3); Lymphocyte % 17.8 %; Mean Corpuscular Hemoglobin 31.8 pg (27-33); Mean Corpuscular Hgb Conc 33.8 g/dL (31-36); Mean Corpuscular Volume 93.9 fL (80-97); Mean Platelet Volume 6.6 fL (7.5-11.2); Nucleated Red Blood Cells % 0.1 %/100WBC (0.0-0.8); Platelet Count 254 10^3/uL (150-450); Red Blood Count 3.49 10^6/uL (3.63-4.92); Red Cell Distribution Width 14.2 % (12-17); White Blood Count 9.1 10^3/uL (3.8-11.8)
[2024-04-11 10:35] LABS: Calcium 8.8 mg/dL (8.6-10.3); Creatinine, Serum 0.47 mg/dL (0.51-0.95); Potassium 4.3 mmol/L (3.5-5.0); eGFR CKD-EPI 99.2 (>60)
[2024-04-11] MEDS: Senna TAB 8.6 mg TAB PO SCH (22:02)
[2024-04-12 23:16] LABS: C Reactive Protein 83.52 mg/L (<8.01)
[2024-04-13 06:25] LABS: ABS Eosinophils 0.1 10^3/uL (0.0-0.5); ABS Lymphocytes 2.4 10^3/uL (1.0-4.8); ABS Monocytes 1.4 10^3/uL (0.0-0.9); ABS Neutrophils 5.9 10^3/uL (1.5-7.6); Eosinophil % 0.8 %; Hematocrit 31.5 % (35-45); Hemoglobin 10.8 g/dL (11.5-14.3); Lymphocyte % 24.4 %; Mean Corpuscular Hgb Conc 34.4 g/dL (31-36); Mean Corpuscular Volume 93.1 fL (80-97); Platelet Count 255 10^3/uL (150-450); Red Blood Count 3.38 10^6/uL (3.63-4.92); Red Cell Distribution Width 14.3 % (12-17); White Blood Count 9.8 10^3/uL (3.8-11.8)
[2024-04-13 07:11] LABS: Calcium 8.8 mg/dL (8.6-10.3); Creatinine, Serum 0.39 mg/dL (0.51-0.95); eGFR CKD-EPI 103.8 (>60)
[2024-04-14 06:56] LABS: C Reactive Protein 113.94 mg/L (<8.01); Calcium 8.7 mg/dL (8.6-10.3); Creatinine, Serum 0.35 mg/dL (0.51-0.95); Potassium 3.7 mmol/L (3.5-5.0); eGFR CKD-EPI 106.5 (>60)
[2024-04-14 18:10] LABS: Urine Appearance Extra Turbid; Urine Bilirubin Negative (Negative); Urine Blood 1+ (Negative); Urine Glucose Negative (Negative); Urine Ketones 1+ (Negative); Urine Nitrite Negative (Negative); Urine Protein 1+ (>=30 mg/dL) (Negative); Urine Specific Gravity 1.023 (1.002-1.030); Urine Urobilinogen 1+ (Negative)
[2024-04-14 18:14] LABS: Urine Amorphous Crystals Present /HPF (Absent); Urine Bacteria 1+ /HPF (Absent); Urine Red Blood Cell 2+(6-10/hpf) /HPF (0-Trace); Urine Squamous Epithelial Cell Present /HPF (Absent); Urine White Blood Cell 3+(>20/hpf) /HPF (0-Trace)
[2024-04-14 18:15] LABS: Urine Color Yellow
[2024-04-15 13:02] VITALS: BP 112/58
== END 2024-04-15 14:00 | DRG 885 ==
LOC: ED 12:16 → EDHOLD 12:16 → SUATTDRO 04-03 15:55 → MEDTELE 04-03 21:19 → BSU 04-04 21:12 → MED 04-06 16:49
PROVIDERS: ADMIT Internal Medicine; ATTEND Internal Medicine